=== PATIENT | female | born 1960 | race Caucasian/White ===

== ENCOUNTER → 2016-10-20 | Outpatient (CLI) | payer BC ==
[~2016-10-20] MED LIST: AMLO-110 PO; BIMA0.01 OP; BIMA0.01 OPB; CHOL100010 PO; CHOL2000 PO; CLON0.5T3 PO; CLOP1TAB15 PO; DOXY50CA26 PO; DOXY50CA5 PO; HYDR-5688 PO; KLN5X PO; METR0.7527 TOP; METR1GEL3 TOP; MULT-506 PO; NRV/5 PO; PLV75 PO; PRAV40TA2 PO
--- NOTE | 2016-10-20 14:33 | MAMMOGRAPHY REPORT ---
BILATERAL DIGITAL SCREENING MAMMOGRAM TOMOSYNTHESIS WITH CAD: 10/20/2016 TECHNIQUE: Breast tomosynthesis in addition to standard 2D mammography was performed. Current study was also evaluated with a Computer Aided Detection (CAD) system. COMPARISON: Comparison is made to exams dated: 10/18/2015, 10/09/2014 mammogram, 09/23/2012 mammogram, 09/26/2013 mammogram, 09/15/2011 mammogram, 09/12/2010 mammogram, and 03/11/2010 mammogram - [facility]. BREAST COMPOSITION: There are scattered areas of fibroglandular density in both breasts. FINDINGS: No suspicious masses, calcifications, or areas of architectural distortion are noted in e ither breast. There has been no significant interval change compared to prior exams. IMPRESSION: ACR BI-RADS CATEGORY 1: NEGATIVE There is no mammographic evidence of malignancy. A 1 year screening mammogram is recommended. The p atient will receive written notification of the results. Approximately 10% of breast cancers are not detected with mammography. A negative mammographic repor t should not delay biopsy if a clinically suggestive mass is present. Ana M Jennings M.D. /:10/20/2016 07:41:52 Fur Stretcher: Adelina ABDALLA(Billie)(M), [facility] letter sent: Normal 1/2 BI-RADS Code: ACR BI-RADS Category 1: Negative
== END | disposition home or self-care (01) ==
LOC: C.MAMM 06:58
PROVIDERS: ATTEND Obstetrics & Gynecology
DX: Z12.31 Encounter for screening mammogram for malignant neoplasm of breast (principal)

== ENCOUNTER 2016-11-19 18:11 | Emergency (ER) | payer SELFPAY ==
[~2016-11-19] VITALS: Ht 170.2 cm; Wt 84.6 kg
[~2016-11-19 18:11] MED LIST changes: -AMLO-110 PO; -BIMA0.01 OP; -CHOL2000 PO; -DOXY50CA26 PO; -HYDR-5688 PO; -KLN5X PO; -METR0.7527 TOP; -NRV/5 PO; -PLV75 PO
[2016-11-19 18:14] VITALS: TEMP 36.8; Ht 170.2 cm; Wt 84.6 kg
[2016-11-19] MEDS ORDERED: METR0.7527 TOP ×2 (18:50→18:53)
[2016-11-19] MEDS ORDERED: CHOL2000 PO (18:50)
[2016-11-19] MEDS ORDERED: NRV/5 PO (18:50)
[2016-11-19] MEDS ORDERED: PLV75 PO (18:53)
[2016-11-19] MEDS ORDERED: AMLO-110 PO (18:53)
[2016-11-19] MEDS ORDERED: DOXY50CA26 PO (18:53)
[2016-11-19] MEDS ORDERED: KLN5X PO (18:53)
[2016-11-19] MEDS ORDERED: BIMA0.01 OP (18:53)
--- NOTE | 2016-11-19 19:04 | DIAGNOSTIC IMAGING REPORT ---
LEFT KNEE 3 VIEWS CLINICAL HISTORY: Left knee pain. Fall. FINDINGS: AP, crosstable lateral, and sunrise views of the left knee are obtained. No prior studies are available for comparison at the time of dictation. The skeletal structures are osteopenic. There is irregularity identified along the medial patellar facet, only seen on the sunrise view. Nondistracted fracture is not excluded. No additional findings are concerning for acute fracture. There is mild degenerative narrowing in the medial and patellofemoral compartments. There are tiny marginal osteophytes, degenerative beaking of the tibial spine, and small patellar enthesophytes. A joint effusion is identified. Soft tissue edema is noted around the knee. IMPRESSION: 1. Soft tissue edema and large joint effusion. 2. There is cortical irregularity identified along the medial patellar facet, only seen on the sunrise view. Nondistracted fracture is not excluded. 3. No additional findings are concerning for acute fracture. 4. Osteopenia and mild degenerative change as above. Electronically signed by: Mushtaq Lacey M.D. 11/19/2016 7:01 PM Dictated Date/Time: 11/19/2016 6:58 PM
[2016-11-19] MEDS ORDERED: NORCO 5/325MG HOME PACK PO ONE (19:15)
[2016-11-19] MEDS ORDERED: HYDR-5688 PO (19:20)
--- NOTE | 2016-11-19 19:21 | EMERGENCY ROOM VISIT NOTE ---
ED Visit Note First contact with patient: 18:55 CHIEF COMPLAINT: Left knee injury earlier today HISTORY OF PRESENT ILLNESS: Patient is a 56-year-old white female who presents to the emergency department for evaluation of left knee pain after a fall that occurred about 8 hours ago. She reportedly tripped in the parking lot of [employer]. She landed on her flexed bilateral knees, apparently the left worse than the right. She sustained some superficial abrasions and was helped up by a bystander. She continued to try to walk into the store, she noticed pain and tightness in her left knee. She notes that the left knee has progressively become more painful and swollen as the day has gone on. She has tried taking Tylenol and applying ice to the area. She denies any prior history of problems with her knees. REVIEW OF SYSTEMS: No weakness or numbness of the leg, no previous serious injuries or surgery to this knee. PMH: Review of systems as per HPI. All other systems reviewed were negative. At least 6 systems reviewed. SOCIAL HISTORY: Patient lives at home. PHYSICAL EXAM: Vital Signs: Reviewed Nurse's notes. MENTAL STATUS: Pleasant 48- year-old white female who is awake and alert and laying on the gurney in no acute distress. MUSCULOSKELETAL: Patient has superficial abrasions noted over the anterior knees bilaterally, left worse than right. She has a moderate joint effusion palpable, with trace anterior soft tissue swelling. The anterior aspect of the knee is tender to palpation. No obvious fracture crepitus or deformity. She can extend fully, flexes the greater than 90. No gross ligamentous instability is appreciated. The left lower extremity is neurovascularly intact. Chronic venous stasis changes with dermatitis was noted in the anterior lower left leg. EMERGENCY DEPARTMENT COURSE: X-ray of the left knee was performed. Moderate joint effusion and soft tissue swelling was noted. Question a lucency on the lateral aspect of the patella could indicate a non-distracted fracture. The patient was wrapped with an Gilberto wrap and placed in a knee immobilizer. She does have crutches that she continues at home. Patient history of established with [facility]. She was encouraged to follow-up with [facility] for further care and management of her knee injury. Differential diagnosis includes contusion, patellar fracture joint fusion, hemarthrosis, meniscal or ligamentous injury, among others. LEFT KNEE 3 VIEWS CLINICAL HISTORY: Left knee pain. Fall. FINDINGS: AP, crosstable lateral, and sunrise views of the left knee are obtained. No prior studies are available for comparison at the time of dictation. The skeletal structures are osteopenic. There is irregularity identified along the medial patellar facet, only seen on the sunrise view. Nondistracted fracture is not excluded. No additional findings are concerning for acute fracture. There is mild degenerative narrowing in the medial and patellofemoral compartments. There are tiny marginal osteophytes, degenerative beaking of the tibial spine, and small patellar enthesophytes. A joint effusion is identified. Soft tissue edema is noted around the knee. IMPRESSION: 1. Soft tissue edema and large joint effusion. 2. There is cortical irregularity identified along the medial patellar facet, only seen on the sunrise view. Nondistracted fracture is not excluded. 3. No additional findings are concerning for acute fracture. 4. Osteopenia and mild degenerative change as above. Problem List Medical Problems: (1) Abdominal pain Status: Resolved (2) Acute appendicitis Status: Resolved (3) Appendicitis Status: Resolved (4) CVA (cerebral vascular accident) Status: Resolved (5) Emphysema Status: Chronic (6) Headache Status: Resolved (7) Heart disease Status: Chronic (8) Hypertension Status: Chronic (9) Stroke Status: Resolved (10) Stroke Status: Resolved Surgical Problems: (1) History of tubal ligation Status: Resolved (2) S/P appendectomy Status: Resolved Current/Historical Medications Scheduled Amlodipine (Norvasc), 5 MG PO DAILY Bimatoprost (Lumigan), 1 DROPS OP HS Clonazepam (Clonazepam), 0.5 MG PO HS Clopidogrel Bisulfate (Clopidogrel), 75 MG PO DAILY Scheduled PRN Doxycycline (Monohydrate) (Doxycycline), 50 MG PO DAILY PRN for rosecea Hydrocodone/Acetaminophen 5MG/325MG (Dixon 5MG/325MG), 1-2 TABLETS PO Q4 PRN for Pain Metronidazole (Topical) (Metrogel), 1 APPLN TOP UD PRN for rosecea Allergies Coded Allergies: Aminoglycosides (Verified Allergy, Unknown, ?, 11/19/16) Bacitracin (Verified Allergy, Unknown, ?, 11/19/16) Cephalexin (Verified Allergy, Unknown, RASH, 11/19/16) Cephalosporins (Verified Allergy, Unknown, 11/19/16) Diphenhydramine (Verified Allergy, Unknown, 11/19/16) Neomycin (Verified Allergy, Unknown, ?, 11/19/16) Polymyxin B (Verified Allergy, Unknown, ?, 11/19/16) Vital Signs Date Time Temp Pulse Resp B/P Pulse Ox O2 Delivery O2 Flow Rate FiO2 11/19/16 19:36 62 18 117/64 94 11/19/16 18:14 36.8 76 20 154/72 97 Room Air Medications Administered Medications (Trade) Dose Ordered Sig/Mirna Route Start Time Stop Time Status Last Admin Dose Admin Acetaminophen/ Hydrocodone Bitart (Dixon 5/325mg Home Pack) 1 homepack UD ONCE PO 11/19/16 19:15 11/19/16 19:16 DC 11/19/16 19:33 1 HOMEPACK Departure Information Impression Primary Impression: Left knee injury Additional Impressions: Multiple abrasions Fall Prescriptions Hydrocodone/Acetaminophen 5MG/325MG (Dixon 5MG/325MG) Tab 1-2 TABLETS PO Q4 Y for Pain, #20 TAB For Initial Treatment Prov: Savannah Abraham PA 11/19/16 Referrals Cy John M.D. (PCP) Mihir Hercules M.D. Patient Instructions My [facility] Additional Instructions Hydrocodone/Acetaminophen (Dixon) 5/325 mg: Take 1-2 pills every four hours for breakthrough pain. Avoid alcohol, operating machinery or dangerous equipment, working on ladders or roofs, DRIVING, or situations where being under the influence may be dangerous. It is recommended to use an bunp-aqn-[id number] stool softener such as Colace, 100mg twice daily while taking this medication to avoid constipation. Ibuprofen(Motrin, Advil) may be used for fever or pain. Use 600mg every six hours as needed. Take with food. Avoid using more than 2400mg in a 24 hour period. Do not use 2400mg per day for more than three consecutive days without physician direction. Prolonged inappropriate use can lead to stomach upset or ulcers. This medication can be taken if you need to drive, work, or perform activities which may be dangerous when taking narcotic pain medication. (AND/OR) Acetaminophen(Tylenol) may be used for fever or pain. Use 1000mg every six hours as needed. Avoid using more than 3000mg in a 24 hour period. This medication can be taken if you need to drive, work, or perform activities which may be dangerous when taking narcotic pain medication. Ice compresses for 20 minutes at a time four times daily for 2-3 days. Use the knee immobilizer and crutches as instructed. Rest and elevate your injury. Continue current medications. Return to the ER immediately for any numbness, tingling, severe pain, extreme swelling in the extremity or as needed. Call [facility] later this week to arrange follow up for your injury. Problem Qualifiers
[2016-11-19 19:36] VITALS: BP 117/64; PULSE 62; O2SAT 94
== END 2016-11-19 19:37 | disposition home or self-care (01) ==
LOC: C.EDB 18:12 → C.EDD 19:37
DX: S80.211A Abrasion, right knee, initial encounter (principal); S80.212A Abrasion, left knee, initial encounter; M25.462 Effusion, left knee; J43.9 Emphysema, unspecified; I10 Essential (primary) hypertension; Z79.899 Other long term (current) drug therapy; Z86.73 Personal history of transient ischemic attack (TIA), and cerebral infarction without residual deficits; W01.0XXA Fall on same level from slipping, tripping and stumbling without subsequent striking against object, initial encounter; Y92.512 Supermarket, store or market as the place of occurrence of the external cause

== ENCOUNTER → 2016-12-02 | Outpatient (CLI) | payer BC ==
[~2016-12-02] MED LIST changes: +AMLO-110 PO; +BIMA0.01 OP; -BIMA0.01 OPB; -CHOL100010 PO; -CLON0.5T3 PO; -CLOP1TAB15 PO; +DOXY50CA26 PO; -DOXY50CA5 PO; +HYDR-5688 PO; +KLN5X PO; +METR0.7527 TOP; -METR1GEL3 TOP; -MULT-506 PO; +PLV75 PO; -PRAV40TA2 PO
[2016-12-02 09:21] LABS: BASO % 0.9 %; BASO ABS # 0.04 K/uL (0-0.2); COMPLETE YES; EOS % 4.1 %; HEMATOCRIT 43.8 % (37-47); LYMPH % 41.6 %; LYMPH ABS # 1.81 K/uL (1.2-3.4); MEAN CELL VOLUME 89.4 fL (80-100); MEAN CORPUSCULAR HEMOGLOBIN 29.6 pg (25-34); MEAN CORPUSCULAR HGB CONC 33.1 g/dl (32-36); MEAN PLATELET VOLUME 10.1 fL (7.4-10.4); MONO % 9.9 %; NEUT % 43.5 %; PLATELET COUNT 276 K/uL (130-400); WHITE BLOOD COUNT 4.35 K/uL (4.8-10.8)
[2016-12-02 09:39] LABS: ESTIMATED AVERAGE GLUCOSE 105 mg/dl; HA1C FLAG Normal (Normal)
[2016-12-02 09:55] LABS: ALT/SGPT 30 U/L (12-78); BLOOD UREA NITROGEN 10 mg/dl (7-18); BUN/CREATININE RATIO 12.9 (10-20); CALCIUM 9.4 mg/dl (8.5-10.1); CARBON DIOXIDE 29 mmol/L (21-32); CHLORIDE 107 mmol/L (98-107); CREATININE 0.77 mg/dl (0.60-1.20); GLUCOSE 91 mg/dl (70-99); POTASSIUM 4.1 mmol/L (3.5-5.1); SODIUM 142 mmol/L (136-145)
[2016-12-02 10:01] LABS: ALB/GLOB RATIO 1.2 (0.9-2); ALKALINE PHOSPHATASE 114 U/L (45-117); AST/SGOT 20 U/L (15-37); CHOLESTEROL 169 mg/dl (0-200); CHOLESTEROL/HDL RATIO 3.3; HDL CHOLESTEROL 51 mg/dl; LDL CHOLESTEROL CALCULATED 99 mg/dl; PHOSPHORUS 2.8 mg/dl (2.5-4.9); THYROID STIMULATING HORMONE 0.965 uIu/ml (0.300-4.500); TRIGLYCERIDES 95 mg/dl (0-150); URIC ACID 3.7 mg/dl (2.6-7.2); VERY LOW DENSITY LIPOPROT CALC 19 mg/dl
--- NOTE | 2016-12-11 10:36 | CODING QUERY MEDICAL NECESSITY ---
CQSUPPORTING DIAGNOSIS NEEDED A supporting diagnosis is required for the test/procedure performed on this patient in order for us to be reimbursed by the patient's insurance. Please provide a supporting diagnosis for the following test/procedure listed below next to the test name along with your signature. *If there is no additional diagnosis for this patient that would support the following test/procedure please document that below next to the test/procedure. Test(s)/Procedure(s) that require a supporting diagnosis: DOS 12/02/16 VITAMIN D TEST C-REACTIVE PROTEIN HIGH SENSITIVITY TEST Provider Signature: Date: Thank you Lorelei Mora Health Information Management Once completed, please kindly fax back to [phone] For questions please call [phone]
== END | disposition home or self-care (01) ==
LOC: C.LAB 08:47
PROVIDERS: ATTEND Family Medicine
DX: R73.09 Other abnormal glucose (principal)

== ENCOUNTER → 2016-12-19 | Outpatient (CLI) | payer BC | END | disposition home or self-care (01) | LOC: C.RDSM 08:25 | PROVIDERS: ATTEND Family Medicine Sports Medicine | DX: S82.009A Unspecified fracture of unspecified patella, initial encounter for closed fracture (principal); X58.XXXA Exposure to other specified factors, initial encounter ==

== ENCOUNTER → 2017-04-02 | Outpatient (CLI) | payer BC | END | disposition home or self-care (01) | LOC: C.PAPS 08:12 | PROVIDERS: ATTEND Obstetrics & Gynecology | DX: Z01.419 Encounter for gynecological examination (general) (routine) without abnormal findings (principal) ==

== ENCOUNTER → 2017-06-20 | Outpatient (CLI) | payer OTHER, BC ==
[~2017-06-20] MED LIST changes: -HYDR-5688 PO
--- NOTE | 2017-06-20 10:42 | DIAGNOSTIC IMAGING REPORT ---
CHEST 2 VIEWS ROUTINE CLINICAL HISTORY: Atypical lower anterior chest pain COMPARISON STUDY: 11/15/2005 FINDINGS: The cardiac and mediastinal contours are normal. There is no evidence of focal pulmonary consolidation. There is no evidence of failure. No pleural effusions are visualized.[ An opacity at the level the left cardiophrenic angle is felt to be secondary to a fat pad. IMPRESSION: No active disease in the chest. Electronically signed by: Dioni Prather M.D. 06/20/2017 10:40 AM Dictated Date/Time: 06/20/2017 10:40 AM
== END | disposition home or self-care (01) ==
LOC: C.RAD1850 10:20
PROVIDERS: ATTEND Emergency Medicine
DX: R07.9 Chest pain, unspecified (principal)

== ENCOUNTER → 2017-10-23 | Day surgery (SDC) | payer BC, OTHER ==
[2017-09-17 07:36] VITALS: Ht 170.2 cm; Wt 86.4 kg
--- NOTE | 2017-10-12 20:25 | HISTORY & PHYSICAL EXAMINATION ---
DATE OF ADMISSION: 10/23/2017 REASON FOR VISIT: Cataract surgery. HISTORY OF PRESENT ILLNESS: This is a 57-year-old white female who was scheduled for cataract surgery on both the left and right eye during the upcoming 3 weeks. Please see note by Dr. Gregg regarding the evaluation of her vision. PAST MEDICAL HISTORY: Status post left hemispheric CVA in 2000, hypertension, hyperlipidemia, restless legs syndrome. PAST SURGICAL HISTORY: Appendectomy in 2013, laparoscopic tubal in 2003. MEDICATIONS: Plavix 75 mg daily, pravastatin 40 mg at bed, clonazepam 0.5 mg at bed, Amlodipine 5 mg daily, Lumigan eyedrops. FAMILY HISTORY: Father at the age of 74 from heart disease. Mother had 2 episodes of deep vein thrombosis. SOCIAL HISTORY: She is . She has 1 son. Currently, no alcohol or tobacco use. ALLERGIES: CEPHALEXIN, DIPHENHYDRAMINE. REVIEW OF SYSTEMS: Negative for headaches, dizziness, chest pain, dyspnea, palpitations, abdominal pain, dysuria or frequency and any weakness or difficulty with her balance. PHYSICAL EXAMINATION: VITAL SIGNS: Her weight is 195. Her height is 67 inches. Blood pressure 130/80, pulse of 81. GENERAL: She is an alert white female in no apparent distress. HEENT: Normal. NECK: Clear. CHEST: Clear to auscultation. CARDIAC: Regular rate without murmur. ABDOMEN: Benign. EXTREMITIES: There is no edema. NEUROLOGIC: Normal. ASSESSMENT: 1. Bilateral cataracts, she has an acceptable risk for the planned surgery. 2. Status post stroke, stable. 3. Hypertension, stable. 4. Hyperlipidemia, stable. PLAN: 1. Continue the above medications. 2. She will hold all her medications except for the amlodipine. 3. Proceed with the planned surgery.
[~2017-10-23] VITALS: Ht 170.2 cm; Wt 86.4 kg
[~2017-10-23] MED LIST changes: +500ML BSS 0.3ML EPI 1:1000PF IRRIG ONE; +ACETAMINOPHEN 325 MG TAB PO PRN; +AMVISC PLUS 0.8ML SYRINGE INT OCU ONE; +ATROPINE SULFATE 0.1 MG/ML 5ML SYR IV PRN; +BROM0.07; +BSS FLUSH ONE; +CALC600T37 PO; +CHOL2000 PO; +DIFL0.0519; -DOXY50CA26 PO; +EpHEDrine SULFATE INJ 50 MG/ML AMP IV PRN; +EpINEphrine INJ 1MG/ML AMP 1 MG/ML AMP ONE; +GATI0.5S OPL; +LACTATED RINGER'S 1000ML 500 ML IV SCH; +LIDOCAINE 3.5% OPH GEL PER APPLICATION CHARGE ONE; +LIDOCAINE HCL 1% MPF 2 ML VIAL ONE; -METR0.7527 TOP; +MIDAZOLAM HCL 1 MG/ML 2ML VIAL ONE; +MULT-506 PO; +OCUCOAT 1 ML SOLN IO ONE; +POVIDONE-IODINE OP SOLN 30 ML BTL ONE; +PROPARACAINE 0.5% OP SOLN PER DROP CHARGE OPL SCH; +PRVC40 PO; +TOBRAMYCIN/DEXAMETHASONE OPH OINT PER APPLN CHARGE ONE
[2017-10-23] MEDS: PHENYLEPHRINE HCL 2.5% OP SOLN PER DROP CHARGE OPL SCH ×2 (11:14→11:19)
[2017-10-23] MEDS: TROPICAMIDE 1% OP SOLN PER DROP CHARGE OPL SCH ×2 (11:15→11:20)
[2017-10-23] MEDS: CYCLOPENTOLATE HCL 1% OP SOLN PER DROP CHARGE OPL SCH ×2 (11:16→11:21)
[2017-10-23] MEDS: KETOROLAC 0.5% OP SOLN PER DROP CHARGE OPL SCH ×2 (11:17→11:21)
[2017-10-23] MEDS: GATIFLOXACIN OP SOLN PER DROP CHARGE OPL SCH ×2 (11:18→11:28)
--- NOTE | 2017-10-23 11:50 | History & Physical Bridge - SC ---
H&P Re-Evaluation Bridge Note: I have examined the patient, reviewed the History & Physical and in the interval since the performance of the History & Physical I have noted the following changes of clinical significance Diagnosis: Left Cataract Procedure: Left Cataract Removal with Lens Implant : No changes noted
--- NOTE | 2017-10-23 12:39 | [facility] Operative Report ---
Operative Report Date of Service Oct 23, 2017. Operative Report 1. PREOPERATIVE DIAGNOSIS: Cataract of the left eye. 2. POSTOPERATIVE DIAGNOSIS: Same. 3. PROCEDURE: Phacoemulsification with intraocular lens implantation of the left eye. SURGEON: Dr. Manpreet Gregg. ANESTHESIA: Topical Lidocaine gel, 1% Non- Preserved intracameral Lidocaine, and monitored intravenous sedation. INDICATIONS FOR THE PROCEDURE: The patient is a 57 - year-old female with a history of cataract of the left eye causing significant visual impairment. The details of the proposed procedure were explained to the patient who asked appropriate questions and following discussion of all risks, benefits and alternatives agreed to have the procedure done. 4. OPERATION AND FINDINGS: DESCRIPTION OF PROCEDURE: After informed consent was obtained, the patient was brought to the Operating Room at the [facility]. The patient was placed in a supine position and then the left eye was prepped and draped in the usual sterile fashion for intraocular surgery. A drop of topical Lidocaine gel was placed in the operative eye. A wire lid speculum was then placed in the fornices. A corneal paracentesis was then created temporally. The Non-Preserved Lidocaine was then instilled into the anterior chamber. The anterior chamber was then pressurized with viscoelastic. A 2.0 mm clear corneal incision was then created temporally. A cystotome was inserted into the anterior chamber and used to create a tear in the anterior lens capsule. This capsular tear was then used to create a small flap and the flap was dragged in a counterclockwise direction in order to create a continuous curvilinear capsulorrhexis. Hydrodissection was accomplished with balanced salt solution. Phacoemulsification of the lens nucleus was then performed in a standard [id number]-hir-eyfluka technique. The phaco time was 18 seconds with an average power of 10 %. The remaining cortical material was removed using irrigation aspiration. The capsular bag was then filled with viscoelastic. A Jose G [id number] +22.5 diopters lens was then loaded into the injector and injected into the capsular bag. The remaining viscoelastic was removed with the irrigation aspiration handpiece. The wound was hydrated and then checked and found to be watertight. The intraocular pressure was checked and found to be adequate. The wire lid speculum was removed and the patient's face was cleaned and dried. TobraDex ointment was placed in the inferior fornix. The patient was discharged to the Recovery Room having tolerated the procedure well. There were no complications. The patient will be seen tomorrow in the office for follow-up. I attest to the content of the Intraoperative Record and any orders documented therein. Any exceptions are noted below.
--- NOTE | 2017-10-23 12:40 | Discharge Instructions-SurgCtr ---
Discharge Instructions Date of Service Oct 23, 2017. Visit Reason for Visit: Left Cataract Discharge Discharge Diagnosis / Problem: cataract Discharge Goals Goal(s): Improve function Activity Recommendations Activity Limitations: per Instructions/Follow-up section Anesthesia . Post Anesthesia Instructions: If you have had General Anesthesia or IV Sedation: * Do not drive today. * Resume driving when surgeon permits. * Do not make important decisions or sign legal documents today. * Call surgeon for: 1. Temperature elevations greater than 101 degrees F. 2. Uncontrollable pain. 3. Excessive bleeding. 4. Persistent nausea and vomiting. 5. Medication intolerance (nausea, vomiting or rash). * For nausea and vomiting use only clear liquids such as: tea, soda, bouillon until nausea subsides, then gradually increase diet as tolerated. * If you have any concerns or questions, call your surgeon's office. If physician is unavailable and it is an emergency, call 911 or go to the nearest emergency room. . Diet Recommendations Home Diet: resume previous diet Procedures Procedures Performed: Left Cataract Phacoemulsification With Intraocular Lens Implant Pending Studies Studies pending at discharge: no Medical Emergencies . Who to Call and When: Medical Emergencies: If at any time you feel your situation is an emergency, please call 911 immediately. . Non-Emergent Contact Non-Emergency issues call your: Preschool Director . . "Provider Documentation" section prepared by Manpreet Gregg. .
[2017-10-23 12:43] VITALS: TEMP 36.5
[2017-10-23 13:16] VITALS: BP 115/72; PULSE 58; O2SAT 97
--- NOTE | 2017-10-23 13:18 | Anesthesia Progress Nt - [facility] ---
Anesthesia Post Op Note Date & Time Oct 23, 2017 at 13:18 Vital Signs Pain Intensity: 0 Vital Signs Past 12 Hours Date Time Temp Pulse Resp B/P (MAP) Pulse Ox O2 Delivery O2 Flow Rate FiO2 10/23/17 13:16 58 16 115/72 (86) 97 Room Air 10/23/17 12:43 36.5 68 16 130/84 (99) 96 Room Air 10/23/17 11:00 36.4 66 16 146/84 (104) 98 Room Air Notes Mental Status: alert / awake / arousable, participated in evaluation Pt Amnestic to Procedure: Yes Nausea / Vomiting: adequately controlled Pain: adequately controlled Airway Patency, RR, SpO2: stable & adequate BP & HR: stable & adequate Hydration State: stable & adequate Anesthetic Complications: no major complications apparent
== END | disposition home or self-care (01) ==
LOC: X.SURG 10:12
PROVIDERS: ATTEND Ophthalmology
DX: H26.9 Unspecified cataract (principal); I10 Essential (primary) hypertension; E78.5 Hyperlipidemia, unspecified; Z90.89 Acquired absence of other organs; Z98.51 Tubal ligation status; Z79.02 Long term (current) use of antithrombotics/antiplatelets; Z79.899 Other long term (current) drug therapy; Z86.73 Personal history of transient ischemic attack (TIA), and cerebral infarction without residual deficits; Z82.49 Family history of ischemic heart disease and other diseases of the circulatory system

== ENCOUNTER → 2017-10-24 | Outpatient (CLI) | payer OTHER ==
[~2017-10-24] MED LIST changes: -500ML BSS 0.3ML EPI 1:1000PF IRRIG ONE; -ACETAMINOPHEN 325 MG TAB PO PRN; -AMVISC PLUS 0.8ML SYRINGE INT OCU ONE; -ATROPINE SULFATE 0.1 MG/ML 5ML SYR IV PRN; -BSS FLUSH ONE; -EpHEDrine SULFATE INJ 50 MG/ML AMP IV PRN; -EpINEphrine INJ 1MG/ML AMP 1 MG/ML AMP ONE; -LACTATED RINGER'S 1000ML 500 ML IV SCH; -LIDOCAINE 3.5% OPH GEL PER APPLICATION CHARGE ONE; -LIDOCAINE HCL 1% MPF 2 ML VIAL ONE; -MIDAZOLAM HCL 1 MG/ML 2ML VIAL ONE; -OCUCOAT 1 ML SOLN IO ONE; -POVIDONE-IODINE OP SOLN 30 ML BTL ONE; -PROPARACAINE 0.5% OP SOLN PER DROP CHARGE OPL SCH; -TOBRAMYCIN/DEXAMETHASONE OPH OINT PER APPLN CHARGE ONE
--- NOTE | 2017-10-24 14:14 | MAMMOGRAPHY REPORT ---
BILATERAL DIGITAL SCREENING MAMMOGRAM TOMOSYNTHESIS WITH CAD: 10/24/2017 CLINICAL HISTORY: Routine screening. Patient has no complaints. TECHNIQUE: Breast tomosynthesis in addition to standard 2D mammography was performed. Current study was also evaluated with a Computer Aided Detection (CAD) system. COMPARISON: Comparison is made to exams dated: 10/20/2016 mammogram, 10/18/2015 mammogram, 10/09/2014 ma mmogram, 09/23/2012 mammogram, 09/15/2011 mammogram, and 09/12/2010 mammogram - [facility]. BREAST COMPOSITION: There are scattered areas of fibroglandular density in both breasts. FINDINGS: No suspicious masses, calcifications, or areas of architectural distortion are noted in ei ther breast. There has been no significant interval change compared to prior exams. Small nodular as ymmetry in the left superior breast middle depth on the MLO view is stable compared to prior exams in cluding 2015 exam. IMPRESSION: ACR BI-RADS CATEGORY 2: BENIGN There is no mammographic evidence of malignancy. A 1 year screening mammogram is recommended. The pa tient will receive written notification of the results. Approximately 10% of breast cancers are not detected with mammography. A negative mammographic report should not delay biopsy if a clinically suggestive mass is present. Ana M Jennings M.D. /:10/24/2017 07:38:10 Deck Cadet: Rubi ABDALLA(R)(M), [facility] letter sent: Normal 1/2 BI-RADS Code: ACR BI-RADS Category 2: Benign
== END | disposition home or self-care (01) ==
LOC: C.MAMM 07:13
PROVIDERS: ATTEND Obstetrics & Gynecology
DX: Z12.31 Encounter for screening mammogram for malignant neoplasm of breast (principal)

== ENCOUNTER → 2017-11-06 | Day surgery (SDC) | payer OTHER ==
[2017-11-02 08:06] VITALS: Ht 170.2 cm; Wt 86.4 kg
[~2017-11-06] VITALS: Ht 170.2 cm; Wt 86.4 kg
[~2017-11-06] MED LIST changes: +500ML BSS 0.3ML EPI 1:1000PF IRRIG ONE; +ACETAMINOPHEN 325 MG TAB PO PRN; +AMVISC PLAIN 0.8ML SYRINGE INT OCU ONE; +AMVISC PLUS 0.8ML SYRINGE INT OCU ONE; +ATROPINE SULFATE 0.1 MG/ML 5ML SYR IV PRN; -BROM0.07; +BSS FLUSH ONE; -DIFL0.0519; +EpHEDrine SULFATE INJ 50 MG/ML AMP IV PRN; +EpINEphrine INJ 1MG/ML AMP 1 MG/ML AMP ONE; +FENTANYL CITRATE INJ 50 MCG/1 ML 2 ML VIAL IV PRN; +FLUMAZENIL 0.1 MG/1 ML 10 ML VIAL IV PRN; -GATI0.5S OPL; +HYDROmorphone INJ 0.5 MG/0.5 ML SYR IV PRN; +LABETALOL HCL IV 5 MG/ML 20ML IV PRN; +LACTATED RINGER'S 1000ML 500 ML IV SCH; +LIDOCAINE 3.5% OPH GEL PER APPLICATION CHARGE ONE; +LIDOCAINE HCL 1% MPF 2 ML VIAL ONE; +MEPERIDINE HCL 25 MG/ML CARP IV PRN; +MIDAZOLAM HCL 1 MG/ML 2ML VIAL ONE; +NALOXONE HCL 0.4 MG/1 ML VIAL/CARP IV PRN; +OCUCOAT 1 ML SOLN IO ONE; +ONDANSETRON INJ 2 MG/ML 2 ML VIAL IV PRN; +PHENYLEPHRINE 100MCG/ML 5ML SYR IV PRN; +POVIDONE-IODINE OP SOLN 30 ML BTL ONE; +PROPARACAINE 0.5% OP SOLN PER DROP CHARGE OPR SCH; +TOBRAMYCIN/DEXAMETHASONE OPH OINT PER APPLN CHARGE ONE
[2017-11-06] MEDS: PHENYLEPHRINE HCL 2.5% OP SOLN PER DROP CHARGE OPR SCH ×2 (07:10→07:15)
[2017-11-06] MEDS: TROPICAMIDE 1% OP SOLN PER DROP CHARGE OPR SCH ×2 (07:11→07:15)
[2017-11-06] MEDS: CYCLOPENTOLATE HCL 1% OP SOLN PER DROP CHARGE OPR SCH ×2 (07:11→07:16)
[2017-11-06] MEDS: KETOROLAC 0.5% OP SOLN PER DROP CHARGE OPR SCH ×2 (07:12→07:16)
[2017-11-06] MEDS: GATIFLOXACIN OP SOLN PER DROP CHARGE OPR SCH ×2 (07:12→07:22)
--- NOTE | 2017-11-06 07:56 | History & Physical Bridge - SC ---
H&P Re-Evaluation Bridge Note: I have examined the patient, reviewed the History & Physical and in the interval since the performance of the History & Physical I have noted the following changes of clinical significance: Diagnosis: Right Cataract Procedure: Right Cataract Removal with Lens Implant No changes noted
--- NOTE | 2017-11-06 08:39 | [facility] Operative Report ---
Operative Report Date of Service Nov 06, 2017. Operative Report 1. PREOPERATIVE DIAGNOSIS: Cataract of the right eye. 2. POSTOPERATIVE DIAGNOSIS: Same. 3. PROCEDURE: Phacoemulsification with intraocular lens implantation of the right eye. SURGEON: Dr. Manpreet Gregg. ANESTHESIA: Topical Lidocaine gel, 1% Non- Preserved intracameral Lidocaine, and monitored intravenous sedation. INDICATIONS FOR THE PROCEDURE: The patient is a 57 - year-old female with a history of cataract of the right eye causing significant visual impairment. The details of the proposed procedure were explained to the patient who asked appropriate questions and following discussion of all risks, benefits and alternatives agreed to have the procedure done. Patient had corneal astigmatism and therefore elected to have a toric lens placed. 4. OPERATION AND FINDINGS: DESCRIPTION OF PROCEDURE: After informed consent was obtained, the patient was placed in an upright position and the cornea was marked at 120 degrees using the Ingresse corneal marking tool. The patient was brought to the Operating Room at the [facility]. The patient was placed in a supine position and then the right eye was prepped and draped in the usual sterile fashion for intraocular surgery. A drop of topical Lidocaine gel was placed in the operative eye. A wire lid speculum was then placed in the fornices. A corneal paracentesis was then created temporally. The Non-Preserved Lidocaine was then instilled into the anterior chamber. The anterior chamber was then pressurized with viscoelastic. A 2.0 mm clear corneal incision was then created temporally. A cystotome was inserted into the anterior chamber and used to create a tear in the anterior lens capsule. This capsular tear was then used to create a small flap and the flap was dragged in a counterclockwise direction in order to create a continuous curvilinear capsulorrhexis. Hydrodissection was accomplished with balanced salt solution. Phacoemulsification of the lens nucleus was then performed in a standard divide- and-conquer technique. The phaco time was 19 seconds with an average power of 9 %. The remaining cortical material was removed using irrigation aspiration. The capsular bag was then filled with viscoelastic. A Jose G [id number] +23.0 diopters lens was then loaded into the injector and injected into the capsular bag. The remaining viscoelastic was removed with the irrigation aspiration handpiece. The lens was aligned with the previously made corneal ro. The wound was hydrated and then checked and found to be watertight. The intraocular pressure was checked and found to be adequate. The wire lid speculum was removed and the patient's face was cleaned and dried. TobraDex ointment was placed in the inferior fornix. The patient was discharged to the Recovery Room having tolerated the procedure well. There were no complications. The patient will be seen tomorrow in the office for follow-up. I attest to the content of the Intraoperative Record and any orders documented therein. Any exceptions are noted below.
--- NOTE | 2017-11-06 08:40 | Discharge Instructions-SurgCtr ---
Discharge Instructions Date of Service Nov 06, 2017. Visit Reason for Visit: Right Cataract Discharge Discharge Diagnosis / Problem: cataract Discharge Goals Goal(s): Improve function Activity Recommendations Activity Limitations: per Instructions/Follow-up section Anesthesia . Post Anesthesia Instructions: If you have had General Anesthesia or IV Sedation: * Do not drive today. * Resume driving when surgeon permits. * Do not make important decisions or sign legal documents today. * Call surgeon for: 1. Temperature elevations greater than 101 degrees F. 2. Uncontrollable pain. 3. Excessive bleeding. 4. Persistent nausea and vomiting. 5. Medication intolerance (nausea, vomiting or rash). * For nausea and vomiting use only clear liquids such as: tea, soda, bouillon until nausea subsides, then gradually increase diet as tolerated. * If you have any concerns or questions, call your surgeon's office. If physician is unavailable and it is an emergency, call 911 or go to the nearest emergency room. . Diet Recommendations Home Diet: resume previous diet Procedures Procedures Performed: Right Cataract Phacoemulsification With Intraocular Lens Implant Pending Studies Studies pending at discharge: no Medical Emergencies . Who to Call and When: Medical Emergencies: If at any time you feel your situation is an emergency, please call 911 immediately. . Non-Emergent Contact Non-Emergency issues call your: Bandsaw Operator . . "Provider Documentation" section prepared by Manpreet Gregg. .
[2017-11-06 08:41] VITALS: TEMP 36.4
--- NOTE | 2017-11-06 09:02 | Anesthesia Progress Nt - [facility] ---
Anesthesia Post Op Note Date & Time Nov 06, 2017 at 09:02 Vital Signs Pain Intensity: 0 Vital Signs Past 12 Hours Date Time Temp Pulse Resp B/P (MAP) Pulse Ox O2 Delivery O2 Flow Rate FiO2 11/06/17 08:41 36.4 70 16 124/85 (98) 97 Room Air 11/06/17 07:00 37 69 18 150/81 (104) 97 Room Air Notes Mental Status: alert / awake / arousable, participated in evaluation Pt Amnestic to Procedure: Yes Nausea / Vomiting: adequately controlled Pain: adequately controlled Airway Patency, RR, SpO2: stable & adequate BP & HR: stable & adequate Hydration State: stable & adequate Anesthetic Complications: no major complications apparent
[2017-11-06 09:04] VITALS: BP 131/83; PULSE 54; O2SAT 98
== END | disposition home or self-care (01) ==
LOC: X.SURG 06:47
PROVIDERS: ATTEND Ophthalmology
DX: H26.9 Unspecified cataract (principal); I10 Essential (primary) hypertension; E78.5 Hyperlipidemia, unspecified; G25.81 Restless legs syndrome; Z88.1 Allergy status to other antibiotic agents; Z88.6 Allergy status to analgesic agent; Z79.02 Long term (current) use of antithrombotics/antiplatelets; Z90.89 Acquired absence of other organs; Z98.51 Tubal ligation status; Z86.73 Personal history of transient ischemic attack (TIA), and cerebral infarction without residual deficits; Z82.49 Family history of ischemic heart disease and other diseases of the circulatory system; Z83.2 Family history of diseases of the blood and blood-forming organs and certain disorders involving the immune mechanism

== ENCOUNTER 2017-11-21 20:02 | Emergency (ER) | payer OTHER ==
[~2017-11-21] VITALS: Ht 170.2 cm; Wt 92.3 kg
[~2017-11-21 20:02] MED LIST changes: -500ML BSS 0.3ML EPI 1:1000PF IRRIG ONE; -ACETAMINOPHEN 325 MG TAB PO PRN; -AMVISC PLAIN 0.8ML SYRINGE INT OCU ONE; -AMVISC PLUS 0.8ML SYRINGE INT OCU ONE; -ATROPINE SULFATE 0.1 MG/ML 5ML SYR IV PRN; -BSS FLUSH ONE; -EpHEDrine SULFATE INJ 50 MG/ML AMP IV PRN; -EpINEphrine INJ 1MG/ML AMP 1 MG/ML AMP ONE; -FENTANYL CITRATE INJ 50 MCG/1 ML 2 ML VIAL IV PRN; -FLUMAZENIL 0.1 MG/1 ML 10 ML VIAL IV PRN; -HYDROmorphone INJ 0.5 MG/0.5 ML SYR IV PRN; -LABETALOL HCL IV 5 MG/ML 20ML IV PRN; -LACTATED RINGER'S 1000ML 500 ML IV SCH; -LIDOCAINE 3.5% OPH GEL PER APPLICATION CHARGE ONE; -LIDOCAINE HCL 1% MPF 2 ML VIAL ONE; -MEPERIDINE HCL 25 MG/ML CARP IV PRN; -MIDAZOLAM HCL 1 MG/ML 2ML VIAL ONE; -NALOXONE HCL 0.4 MG/1 ML VIAL/CARP IV PRN; -OCUCOAT 1 ML SOLN IO ONE; -ONDANSETRON INJ 2 MG/ML 2 ML VIAL IV PRN; -PHENYLEPHRINE 100MCG/ML 5ML SYR IV PRN; -POVIDONE-IODINE OP SOLN 30 ML BTL ONE; -PROPARACAINE 0.5% OP SOLN PER DROP CHARGE OPR SCH; -TOBRAMYCIN/DEXAMETHASONE OPH OINT PER APPLN CHARGE ONE
[2017-11-21 20:05] VITALS: TEMP 36.7; Ht 170.2 cm; Wt 92.3 kg
[2017-11-21] MEDS ORDERED: SODIUM CHLORIDE 0.9% 1000ML 1,000 ML IV STA (20:58)
[2017-11-21] MEDS ORDERED: CIPROFLOXACIN 500 MG TAB PO STA (20:58)
[2017-11-21] MEDS ORDERED: ONDANSETRON INJ 2 MG/ML 2 ML VIAL IV STA (20:58)
[2017-11-21] MEDS ORDERED: KETOROLAC TROMETHAMINE 30 MG/ML VIAL IV STA (20:58)
--- NOTE | 2017-11-21 21:01 | EMERGENCY ROOM VISIT NOTE ---
History Report prepared by Jalen: Lilliam Lawson Under the Supervision of: Dr. Castro Bro M.D. First contact with patient: 20:53 Chief Complaint: NAUSEA Stated Complaint: NAUSEA Nursing Triage Summary: [facility] and given abx for tx of UTI , 30 mins after taking 1st dose of med vomitted X 5 times and now has diarrhea pt given macrobid and pyridium History of Present Illness The patient is a 57 year old female who presents to the Emergency Room with complaints of vomiting that began prior to arrival. She reports that she went to [facility] earlier today. There she was diagnosed with a urinary tract infection, noting that she was prescribed Macrobid and Pyridium. After about 30 minutes of taking her medication, the patient began vomiting. She has been nauseous since then. The patient reports that she takes Plavix, noting a history of a stroke, appendectomy, and having her tubes tied. Source of History: patient Onset: today Position: other (gastrointestinal) Quality: other (vomiting) Timing: other (persistent) Associated Symptoms: + nausea Review of Systems See HPI for pertinent positives & negatives. A total of 10 systems reviewed and were otherwise negative. Past Medical & Surgical Medical Problems: (1) Abdominal pain (2) Acute appendicitis (3) Appendicitis (4) CVA (cerebral vascular accident) (5) Emphysema (6) Headache (7) Heart disease (8) Hypertension (9) Stroke (10) Stroke Surgical Problems: (1) History of tubal ligation (2) S/P appendectomy Family History Cancer Diabetes mellitus Gallbladder disease Heart disease Hypertension Kidney disease Kidney stones Seizures Social History Smoking Status: Never Smoker Alcohol Use: occasionally Marital Status: Housing Status: lives with significant other Occupation Status: employed Current/Historical Medications Scheduled Amlodipine (Norvasc), 5 MG PO QAM Bimatoprost (Lumigan), 1 DROPS OP HS Calcium (Calcium), 1 TAB PO DAILY Cholecalciferol (Vitamin D3), 1 CAP PO DAILY Ciprofloxacin Hcl (Cipro), 1 TAB PO BID Clonazepam (Clonazepam), 0.5 MG PO HS Clopidogrel Bisulfate (Clopidogrel), 75 MG PO QAM Multivitamin (Multivitamin), 1 TAB PO DAILY Ondasetron Odt (Zofran Odt), 4 MG SL Q6H Pravastatin Sod (Pravastatin Sodium), 1 TAB PO HS Allergies Coded Allergies: Diphenhydramine (Verified Allergy, Intermediate, SEIZURES, 11/06/17) Cephalexin (Verified Allergy, Mild, RASH, 11/06/17) Bacitracin (Verified Allergy, Unknown, BLISTERS, 11/06/17) Neomycin (Verified Allergy, Unknown, BLISTERS, 11/06/17) Polymyxin B (Verified Allergy, Unknown, BLISTERS, 11/06/17) Physical Exam Vital Signs Date Time Temp Pulse Resp B/P (MAP) Pulse Ox O2 Delivery O2 Flow Rate FiO2 11/21/17 22:29 95 23 149/84 93 11/21/17 22:00 92 Room Air 11/21/17 21:46 87 21 140/86 95 Room Air 11/21/17 21:43 83 11/21/17 21:25 88 20 175/89 94 Room Air 11/21/17 20:05 36.7 107 20 140/85 95 Room Air Physical Exam GENERAL: Awake, alert, well-appearing, in no acute distress HENT: Normocephalic, atraumatic. Oropharynx unremarkable. EYES: Normal conjunctiva. Sclera non-icteric. NECK: Supple. No nuchal rigidity. FROM. No JVD. RESPIRATORY: Clear to auscultation. CARDIAC: Regular rate, normal rhythm. Extremities warm and well perfused. Pulses equal. ABDOMEN: Soft, non-distended. No tenderness to palpation. No rebound or guarding. No masses. RECTAL: Deferred. MUSCULOSKELETAL: Chest examination reveals no tenderness. The back is symmetrical on inspection without obvious abnormality. There is no CVA tenderness to palpation. No joint edema. LOWER EXTREMITIES: Calves are equal size bilaterally and non-tender. No edema. No discoloration. NEURO: Normal sensorium. No sensory or motor deficits noted. SKIN: No rash or jaundice noted. Medical Decision & Procedures Laboratory Results 11/21/17 20:15 Red Blood Count 5.27, Mean Corpuscular Volume 87.7, Mean Corpuscular Hemoglobin 30.0, Mean Corpuscular Hemoglobin Concent 34.2, Mean Platelet Volume 9.5, Neutrophils (%) (Auto) 89.3, Lymphocytes (%) (Auto) 3.9, Monocytes (%) (Auto) 5.4, Eosinophils (%) (Auto) 1.0, Basophils (%) (Auto) 0.1, Neutrophils # (Auto) 12.53, Lymphocytes # (Auto) 0.55, Monocytes # (Auto) 0.76, Eosinophils # (Auto) 0.14, Basophils # (Auto) 0.02 11/21/17 20:15 Test 11/21/17 20:15 11/21/17 21:00 White Blood Count 14.04 K/uL (4.8-10.8) Red Blood Count 5.27 M/uL (4.2-5.4) Hemoglobin 15.8 g/dL (12.0-16.0) Hematocrit 46.2 % (37-47) Mean Corpuscular Volume 87.7 fL (80-100) Mean Corpuscular Hemoglobin 30.0 pg (25-34) Mean Corpuscular Hemoglobin Concent 34.2 g/dl (32-36) Platelet Count 285 K/uL (130-400) Mean Platelet Volume 9.5 fL (7.4-10.4) Neutrophils (%) (Auto) 89.3 % Lymphocytes (%) (Auto) 3.9 % Monocytes (%) (Auto) 5.4 % Eosinophils (%) (Auto) 1.0 % Basophils (%) (Auto) 0.1 % Neutrophils # (Auto) 12.53 K/uL (1.4-6.5) Lymphocytes # (Auto) 0.55 K/uL (1.2-3.4) Monocytes # (Auto) 0.76 K/uL (0.11-0.59) Eosinophils # (Auto) 0.14 K/uL (0-0.5) Basophils # (Auto) 0.02 K/uL (0-0.2) RDW Standard Deviation 43.6 fL (36.4-46.3) RDW Coefficient of Variation 13.6 % (11.5-14.5) Immature Granulocyte % (Auto) 0.3 % Immature Granulocyte # (Auto) 0.04 K/uL (0.00-0.02) Anion Gap 6.0 mmol/L (3-11) Est Creatinine Clear Calc Drug Dose 64.2 ml/min Estimated GFR () 63.6 Estimated GFR (Non- 54.9 BUN/Creatinine Ratio 18.5 (10-20) Calcium Level 9.4 mg/dl (8.5-10.1) Total Bilirubin 0.8 mg/dl (0.2-1) Direct Bilirubin 0.2 mg/dl (0-0.2) Aspartate Amino Transf (AST/SGOT) 29 U/L (15-37) Alanine Aminotransferase (ALT/SGPT) 37 U/L (12-78) Alkaline Phosphatase 93 U/L (45-117) Total Protein 8.5 gm/dl (6.4-8.2) Albumin 4.7 gm/dl (3.4-5.0) Lipase 176 U/L (73-393) Urine Color ORANGE Urine Appearance SLIGHTLY CLOUDY (CLEAR) Urine pH (4.5-7.5) Urine Specific [place] 1.028 (1.000-1.030) Urine Protein (NEG) Urine Glucose (UA) (NEG) Urine Ketones (NEG) Urine Occult Blood (NEG) Urine Nitrite (NEG) Urine Bilirubin (NEG) Urine Urobilinogen (NEG) Urine Leukocyte Esterase (NEG) Urine RBC >30 /hpf (0-4) Urine WBC >30 /hpf (0-5) Urine Epithelial Cells >30 /lpf (0-5) Urine Bacteria 2+ (NEG) Urine Yeast PRESENT (NONE PRSENT) Labs reviewed by ED physician. Medications Administered Medications (Trade) Dose Ordered Sig/Mirna Route Start Time Stop Time Status Last Admin Dose Admin Sodium Chloride 1,000 ml @ 999 mls/hr Q1H1M STAT IV 11/21/17 20:58 11/21/17 21:58 DC 11/21/17 21:15 999 MLS/HR Ketorolac Tromethamine (Toradol Inj) 30 mg NOW STAT IV 11/21/17 20:58 11/21/17 21:01 DC 11/21/17 21:20 30 MG Ondansetron HCl (Zofran Inj) 4 mg NOW STAT IV 11/21/17 20:58 11/21/17 21:01 DC 11/21/17 21:20 4 MG Ciprofloxacin (Cipro Tab) 500 mg NOW STAT PO 11/21/17 20:58 11/21/17 21:02 DC 11/21/17 21:42 500 MG Albuterol Sulfate (Ventolin 0.083% 2.5MG/3ML Neb) 2.5 mg NOW STAT INH 11/21/17 21:35 11/21/17 21:37 DC 11/21/17 21:42 2.5 MG Albuterol Sulfate (Ventolin 0.083% 2.5MG/3ML Neb) 2.5 mg NOW STAT INH 11/21/17 22:02 11/21/17 22:03 DC 11/21/17 22:06 2.5 MG Albuterol (Ventolin Hfa Inhaler) 2 puffs NOW STAT INH 11/21/17 22:09 11/21/17 22:11 DC 11/21/17 22:20 2 PUFFS Ondansetron HCl (ZOFRAN ODT 4MG Home Pack) 1 homepack UD STAT PO 11/21/17 22:09 11/21/17 22:11 DC 11/21/17 22:20 1 HOMEPACK ED Course 2054: Past medical records reviewed. The patient was evaluated in room C12. A complete history and physical examination was performed. 2057: Ordered Ciprofloxacin 500mg PO, Zofran Inj 4mg IV, Toradol Inj 30mg, and Sodium Chloride 1000ml @ 999mls/hr IV. 2134: Ordered Albuterol Sulfate 2.5mg. 2201: Ordered Albuterol Sulfate 2.5mg. 2208: Ordered Ondansetron HCl 1 homepack PO and Albuterol 2 puffs INH. 2222: Upon reexamination the patient is feeling significantly better. I discussed results and treatment plan with the patient. She verbalizes agreement and understanding. The patient is ready for discharge. Medical Decision Differential diagnosis: Etiologies such as gastroenteritis, food borne illness, infections, appendicitis , diverticulitis, inflammatory bowel disease, obstruction, GI bleed, biliary pathology, as well as others were entertained. This is a 57-year-old female who presents emergency department after vomiting and diarrhea after taking Macrobid and Pyridium. An IV was established, the patient is given normal saline bolus. I will note that the patient never had any abdominal pain chest pain or shortness of breath. She is nontender on physical examination. Serial abdominal examinations were performed on the patient in the emergency department and at no time the patient exhibits surgical abdomen. I suspect that the patient's elevation in her white blood cell count is due to vomiting. After receiving Toradol and IV Zofran, the patient was able to tolerate p.o. Cipro. Urine culture was obtained. I recommended that the patient follow-up with her primary care physician. The patient was given breathing treatments in the emergency department though she denied being short of breath. I will note that she also has a history of sleep apnea. She was given an inhaler for use at home. Medication Reconcilliation Current Medication List: was personally reviewed by me Blood Pressure Screening Patient's blood pressure: Elevated blood pressure Blood pressure disposition: Elevated BP felt to be situational Impression Primary Impression: UTI (urinary tract infection) Additional Impression: Gastritis Scribe Attestation The scribe's documentation has been prepared under my direction and personally reviewed by me in its entirety. I confirm that the note above accurately reflects all work, treatment, procedures, and medical decision making performed by me. Departure Information Dispostion Home / Self-Care Prescriptions Ondasetron Odt (ZOFRAN ODT) 4 Mg Tab 4 MG SL Q6H for Nausea, #6 TAB Prov: Castro Bro MD 11/21/17 Ciprofloxacin Hcl (CIPRO) 500 Mg Tab 1 TAB PO BID for 10 Days, #20 TAB Prov: Castro Bro MD 11/21/17 Referrals Cy John M.D. (PCP) Forms HOME CARE DOCUMENTATION FORM, IMPORTANT VISIT INFORMATION Patient Instructions My [facility] Health Problem Qualifiers Primary Impression: UTI (urinary tract infection) Urinary tract infection type: acute cystitis Hematuria presence: without hematuria Qualified Codes: N30.00 - Acute cystitis without hematuria Additional Impression: Gastritis Gastritis type: unspecified gastritis Chronicity: acute Gastritis bleeding : presence of bleeding unspecified Qualified Codes: K29.00 - Acute gastritis without bleeding
[2017-11-21 21:29] LABS: BASO % 0.1 %; BASO ABS # 0.02 K/uL (0-0.2); EOS ABS # 0.14 K/uL (0-0.5); HEMATOCRIT 46.2 % (37-47); HEMOGLOBIN 15.8 g/dL (12.0-16.0); IG# 0.04 K/uL (0.00-0.02); LYMPH % 3.9 %; LYMPH ABS # 0.55 K/uL (1.2-3.4); MEAN CELL VOLUME 87.7 fL (80-100); MEAN CORPUSCULAR HGB CONC 34.2 g/dl (32-36); MEAN PLATELET VOLUME 9.5 fL (7.4-10.4); MONO % 5.4 %; MONO ABS # 0.76 K/uL (0.11-0.59); NEUT % 89.3 %; NEUT ABS # 12.53 K/uL (1.4-6.5); PLATELET COUNT 285 K/uL (130-400); RED CELL DISTRIBUTION WIDTH CV 13.6 % (11.5-14.5); RED CELL DISTRIBUTION WIDTH SD 43.6 fL (36.4-46.3); WHITE BLOOD COUNT 14.04 K/uL (4.8-10.8)
[2017-11-21] MEDS ORDERED: ALBUTEROL 0.083% NEBU SOLN 3 ML VIAL INH STA ×2 (21:35→22:02)
[2017-11-21 21:47] LABS: ALBUMIN 4.7 gm/dl (3.4-5.0); CALCIUM 9.4 mg/dl (8.5-10.1); CREATININE 1.1 mg/dl (0.60-1.20); POTASSIUM 3.8 mmol/L (3.5-5.1)
[2017-11-21 21:49] LABS: TOTAL PROTEIN 8.5 gm/dl (6.4-8.2)
[2017-11-21] MEDS ORDERED: ALBUTEROL HFA 8 GM INHALER INH STA (22:09)
[2017-11-21] MEDS ORDERED: ONDANSETRON HOME PACK 4MG OD TAB PO STA (22:09)
[2017-11-21] MEDS ORDERED: ONDA4TAB10 SL (22:12)
[2017-11-21] MEDS ORDERED: CIPR-255 PO (22:12)
[2017-11-21 22:29] VITALS: BP 149/84; PULSE 95; O2SAT 93
--- NOTE | 2017-11-21 22:52 | DIAGNOSTIC IMAGING REPORT ---
CHEST ONE VIEW PORTABLE CLINICAL HISTORY: 57 years-old Female presenting with Pt c/o hypoxia. TECHNIQUE: Portable upright AP view of the chest was obtained. COMPARISON: 06/20/2017. FINDINGS: Atherosclerosis of the aortic arch. Cardiac silhouette top normal in size. Interval development of added density of the lung bases with prominent lung markings. No focal opacity. No large effusion or pneumothorax. Osseous structures normal. Upper abdomen normal. IMPRESSION: 1. Findings suggest congestive change or aspiration. No focal opacity to suggest pneumonia. No shon pulmonary edema. Electronically signed by: Ton Cisneros M.D. 11/21/2017 10:51 PM Dictated Date/Time: 11/21/2017 10:50 PM
--- NOTE | 2017-11-23 11:57 | Pharmacy Progress Note ---
ED Pharmacist Culture FollowUp Date of Service: Nov 23, 2017. Patient was sent home with a prescription for ciprofloxacin, which should cover the E. coli growing from the patient's urine culture.
== END 2017-11-21 22:27 | disposition home or self-care (01) ==
LOC: C.EDB 20:03 → C.EDC 22:27
DX: N30.00 Acute cystitis without hematuria (principal); K29.00 Acute gastritis without bleeding; Z86.73 Personal history of transient ischemic attack (TIA), and cerebral infarction without residual deficits; I10 Essential (primary) hypertension; I25.2 Old myocardial infarction; Z88.8 Allergy status to other drugs, medicaments and biological substances

== ENCOUNTER 2019-02-04 06:31 | Observation (INO) ==
--- NOTE | 2019-02-04 07:03 | Emergency Department Note ---
ED Provider Note I assisted in the care of this patient with Dr. Villa. Please refer to her note for additional details. Past Med/Surg History Social History Preferred Language: Kosovan Communication Ability: Effective Beliefs That Will Affect Care: None Current Living Situation: Spouse Feels Safe at Home: Yes Smoking Status: Never smoker Second Hand Exposure: Yes (SPOUSE SMOKES) Hx Alcohol Use: Yes Alcohol type: hard liquor Hx Substance Use: No Results & Data Vital Signs Vital Signs - 24 hr 02/04/19 06:36 Temperature 36.9 C Temperature Source Oral Sepsis Recent Fever Within 48 Hours No Sepsis New/Unexplained Change in Mental Status No Sepsis Action Taken by Nursing No Action Required Pulse Rate 76 Respiratory Rate 16 Respiratory Effort / Characteristics Non-Labored Spontaneous Respiratory Depth Normal Blood Pressure 139/83 Blood Pressure Mean 101 Pulse Oximetry 97 Oxygen Delivery Method Room Air Discharge Plan Visit Data Chief Complaint: Rectal Bleed Stated Complaint: BLEEDING S/P COLONOSCOPY YESTERDAY IN [place] ED Provider: Grace Topete ED Midlevel Provider: Nury Mckinnon Prescriptions Prescriptions: No Action cyanocobalamin (vitamin B-12) 1,000 mcg Capsule 1,000 mcg PO QAM RF: 0 pravastatin 40 mg Tablet 40 mg PO HS RF: 0 clonazepam 0.5 mg tablet 0.5 mg PO HS RF: 0 clopidogrel 75 mg tablet 75 mg PO HS RF: 0 amlodipine 5 mg tablet 5 mg PO QAM RF: 0 calcium carbonate [Calcium 600] 600 mg calcium (1,500 mg) Tablet 600 mg PO QAM RF: 0 cholecalciferol (vitamin D3) [Vitamin D3] 2,000 unit Capsule 2,000 unit PO QAM RF: 0 bimatoprost 0.01 % drops 1 drp OPB HS RF: 0 multivitamin Tablet 1 tab PO QAM RF: 0 famotidine 20 mg tablet 20 mg PO BID Qty: 20 RF: 0 ondansetron 4 mg tablet,disintegrating 4 mg PO Q6H PRN (Reason: nausea and vomiting) Qty: 14 RF: 0 dicyclomine 20 mg tablet 20 mg PO QID PRN (Reason: abdominal pain) Qty: 30 RF: 0
[2019-02-04] MEDS ORDERED: SODIUM CHLORIDE 0.9% 250 ML IV PRN (07:10)
--- NOTE | 2019-02-04 07:13 | Emergency Department Note ---
ED Visit Note I assisted Dr. Topete with the care of this patient. Please refer to her note for additional details. . Resident Activity Tracking Resident Involvement: Resident Care Provided Care Provided: Adult ED
[2019-02-04] MEDS ORDERED: SODIUM CHLORIDE 0.9% 500 ML IV SCH (07:15)
[2019-02-04 07:21] LABS: Basophils # (auto) 0.03 K/uL (0-0.2); Basophils % (auto) 0.4 %; Eosinophils # (auto) 0.17 K/uL (0-0.5); Eosinophils % (auto) 2.3 %; Hemoglobin 13.6 g/dL (12.0-16.0); Immature Granulocytes # (auto) 0.02 K/uL (0.00-0.02); Immature Granulocytes % (auto) 0.3 %; Lymphocytes # (auto) 1.85 K/uL (1.2-3.4); Lymphocytes % (auto) 24.6 %; Mean Corpuscular Volume 86.8 fL (80-100); Mean Platelet Volume 9.7 fL (7.4-10.4); Monocytes # (auto) 0.57 K/uL (0.11-0.59); Monocytes % (auto) 7.6 %; Neutrophils # (auto) 4.88 K/uL (1.4-6.5); Neutrophils % (auto) 64.8 %; Platelet Count 255 K/uL (130-400); RDW Coefficient of Variation 12.8 % (11.5-14.5); RDW Standard Deviation 40.6 fL (36.4-46.3); Red Blood Count 4.61 M/uL (4.2-5.4); White Blood Count 7.52 K/uL (4.8-10.8)
[2019-02-04 07:29] LABS: Albumin Level 3.8 gm/dl (3.4-5.0); BUN Creatinine Ratio 10.2 (10-20); Est GFR (African American) 78.4; Est GFR (Non-African American) 67.7; Partial Thromboplastin Ratio 0.9; Partial Thromboplastin Time 24.5 Seconds (21.0-31.0); Potassium 3.8 mmol/L (3.5-5.1); Prothrombin Time 10.7 Seconds (9.0-12.0)
[2019-02-04 07:32] LABS: Albumin Globulin Ratio 1.1 (0.9-2); Bilirubin,Total 0.8 mg/dl (0.2-1); Globulin 3.5 gm/dl (2.5-4.0); Total Protein 7.3 gm/dl (6.4-8.2)
--- NOTE | 2019-02-04 09:37 | XRay Report ---
PA CHEST WITH ABDOMINAL SERIES CLINICAL HISTORY: Generalized abdominal pain. Hematochezia status post colonoscopy. FINDINGS: A PA chest radiograph is compared to study dated 12/01/2018. The cardiomediastinal silhouette is unrem arkable. The lungs and pleural spaces are clear. No pneumothorax is seen. The skeletal structures are osteopenic. The bony thorax is grossly intact. Supine and erect abdominal radiographs are correlated with abdominal CT dated 12/01/2018. Surgical cli ps are noted in the right mid abdomen. Suture material is seen in the right lower quadrant. There is a nonobstructed abdominal bowel gas pattern. No evidence of intraperitoneal free air is seen. There a re no abnormal abdominal calcifications. The lumbosacral spine and bony pelvis appear intact. IMPRESSION: 1. No active disease in the chest. 2. Nonobstructed abdominal bowel gas pattern. 3. No intraperitoneal free air is identified. Electronically signed by: Mushtaq Lacey M.D. 02/04/2019 9:36 AM
--- NOTE | 2019-02-04 10:55 | Gastrointestinal Consultation ---
Date of Consultation February 04, 2019 Assessment & Plan (1) Gastrointestinal bleeding, lower: (2) Abdominal cramping: (3) Status post colonoscopy with polypectomy: 1. NPO for now. 2. Colonoscopy now further evaluation by Dr. Hicks. 3. Additional recommendations will be made pending results of testing. Supervising Physician Co-Signing Physician Notes Agree with ALEX Manzanares as above Abd: Soft, NT, ND, +BS Patient with large polypectomy by Dr. Kaufman at [facility] yesterday. I discussed case with him. Most likely post-polypectomy bleeding from yesterday. Patient has only had clear liquids, and has not restarted her Plavix. Will proceed with colonoscopy now. History of Present Illness Reason for Consultation: LGIB Requesting Physician: Dr. Topete Attending Physician: Dr. 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 Hicks in November of this year. Due to this, she was referred for EMR at [facility] by Dr. Kaufman. The patient did undergo the procedure yesterday. After discussion with Dr. Kaufman and review of endoscopic procedure report, was found that the procedure was technically challenging and she did have an arterial bleed during the procedure which required Endoclip placement x 2 for hemostasis. She was discharged home on a clear liquid diet. Patient states that upon discharge, she did have some mild abdominal cramping and was very tired. She did only consume liquids in the middle of the night. Several hours prior to arrival, she states she began having worsening cramping and liquid and bloody stools "felt like I was still prepping". Since arrival at the ER, she has continued to pass some bright red and meagan liquid stool. No abdominal firmness or severe pain but some cramping remains. Denies any fevers or chills, nausea or vomiting, chest pain, shortness of breath or fatigue. Abdominal series was negative for any free air. Allergies Allergy/AdvReac Type Severity Reaction Status Date / Time diphenhydramine Allergy Intermediate SEIZURES Verified 02/04/19 11:17 cephalexin Allergy Mild RASH Verified 02/04/19 11:17 bacitracin Allergy Unknown BLISTERS Verified 02/04/19 11:17 neomycin Allergy Unknown BLISTERS Verified 02/04/19 11:17 polymyxin B Allergy Unknown BLISTERS Verified 02/04/19 11:17 nitrofurantoin AdvReac Vomiting Verified 02/04/19 11:17 [From Macrodantin] Home Medications Home Medications Medication Instructions Recorded Confirmed Type amlodipine 5 mg PO QAM 04/18/18 02/04/19 History bimatoprost 1 drp OPB HS 04/18/18 02/04/19 History calcium carbonate [Calcium 600] 600 mg PO QAM 04/18/18 02/04/19 History cholecalciferol (vitamin D3) 2,000 unit PO QAM 04/18/18 02/04/19 History [Vitamin D3] clonazepam 0.5 mg PO HS 04/18/18 02/04/19 History clopidogrel 75 mg PO HS 04/18/18 02/04/19 History multivitamin 1 tab PO QAM 04/18/18 02/04/19 History pravastatin 40 mg PO HS 04/18/18 02/04/19 History cyanocobalamin (vitamin B-12) 1,000 mcg PO QAM 11/13/18 02/04/19 History Patient History Medical History Hyperlipidemia Hypertension Restless leg syndrome Stroke 2000-WOKE UP WITH RIGHT SIDE PARALYZED-REMAINS WITH RIGHT LEG WEAKNESS WITH FATIGUE-ON BLOOD THINNER SINCE 2000-NO ISSUES SINCE Surgical History History of appendectomy 2014 CANCER DX'D ON PATHOLOGY-NO CHEMO/NO RADIATION History of bilateral tubal ligation History of cataract surgery R/L History of colonoscopy History of open reduction and internal fixation (ORIF) procedure LEFT WRIST History of transesophageal echocardiography (PABLO) X 3 Family History Uncle Family history of diabetes mellitus Family/Other Family history of diabetes mellitus Grandmother (Paternal) Family history of diabetes mellitus Mother Family hx of colon cancer Social History Preferred Language: Romansh Communication Ability: Effective Beliefs That Will Affect Care: None Current Living Situation: Spouse Feels Safe at Home: Yes Smoking Status: Never smoker Second Hand Exposure: Yes (SPOUSE SMOKES) Hx Alcohol Use: Yes Alcohol type: hard liquor Hx Substance Use: No Review of Systems Review of Systems: All systems reviewed & are unremarkable except as noted in HPI & below Physical Exam Constitutional: WD/WN, vitals as above Eyes: EOM intact bilaterally Neck: normal appearance Respiratory: normal respiratory effort, lungs clear to auscultation Cardiovascular: Rate/Rhythm: regular rate and regular rhythm Gastrointestinal (Abdomen): Inspection/Auscultation: normal bowel sounds Percussion/Palpation: abdomen soft; abdomen nontender Musculoskeletal: Extremities: no cyanosis Skin: no rashes, warm and dry Psychiatric: A+Ox3, euthymic affect Results & Data Vital Signs (Past 12 Hours) Vital Signs Temp Pulse Resp BP Pulse Ox 02/04/19 10:31 62 18 92 02/04/19 10:30 63 16 123/74 93 02/04/19 10:22 60 130/80 94 02/04/19 10:21 66 94 02/04/19 09:01 68 143/92 H 02/04/19 09:00 67 02/04/19 08:31 63 02/04/19 08:30 60 22 115/76 02/04/19 08:01 61 15 02/04/19 08:00 62 16 123/81 02/04/19 07:32 95 02/04/19 07:31 69 15 93 02/04/19 07:30 66 20 111/80 93 02/04/19 07:29 67 21 94 02/04/19 07:26 67 18 120/79 91 02/04/19 06:36 36.9 C 76 16 139/83 97 Laboratory Results Abnormal lab results 02/04/19 02/04/19 Range/Units 07:01 07:29 Chloride 109 H (98-107) mmol/L Glucose 102 H (70-99) mg/dl Alkaline Phosphatase 122 H (45-117) U/L Crossmatch See Detail
--- NOTE | 2019-02-04 11:02 | Anesthesiology Consultation ---
Date of Service February 04, 2019 Assessment & Plan Chart Review Chart Review: Acceptable Risk for Surgery and Patient NOT seen in Pre Admission Testing Consults Requested none History Surgery Operation Date: 02/04/19 09:30 Proposed Procedures p Colonoscopy Dr. Kurt Hicks, DO Height/Weight Height: 5 ft 6 in Weight: 91.3 kg Allergies Allergy/AdvReac Type Severity Reaction Status Date / Time diphenhydramine Allergy Intermediate SEIZURES Verified 02/04/19 07:06 cephalexin Allergy Mild RASH Verified 02/04/19 07:06 bacitracin Allergy Unknown BLISTERS Verified 02/04/19 07:06 neomycin Allergy Unknown BLISTERS Verified 02/04/19 07:06 polymyxin B Allergy Unknown BLISTERS Verified 02/04/19 07:06 nitrofurantoin AdvReac Vomiting Verified 02/04/19 07:06 [From Macrodantin] Medications Home Medications Medication Instructions Recorded Confirmed Last Taken amlodipine 5 mg PO QA 04/18/18 02/04/19 02/03/19 bimatoprost 1 drp OPB 04/18/18 02/04/19 02/03/19 calcium carbonate [Calcium 600] 600 mg PO QAM 04/18/18 02/04/19 02/03/19 cholecalciferol (vitamin D3) 2,000 unit PO QA 04/18/18 02/04/19 02/03/19 [Vitamin D3] clonazepam 0.5 mg PO 04/18/18 02/04/19 02/03/19 clopidogrel 75 mg PO 04/18/18 02/04/19 01/27/19 multivitamin 1 tab PO QA 04/18/18 02/04/19 02/03/19 pravastatin 40 mg PO 04/18/18 02/04/19 02/03/19 cyanocobalamin (vitamin B-12) 1,000 mcg PO QAM 11/13/18 02/04/19 02/03/19 Past Medical History Medical History Hyperlipidemia Hypertension Restless leg syndrome Stroke 2000-WOKE UP WITH RIGHT SIDE PARALYZED-REMAINS WITH RIGHT LEG WEAKNESS WITH FATIGUE-ON BLOOD THINNER SINCE 2000-NO ISSUES SINCE Past Family History Family History Uncle Family history of diabetes mellitus Family/Other Family history of diabetes mellitus Grandmother (Paternal) Family history of diabetes mellitus Mother Family hx of colon cancer Past Surgical History Surgical History History of appendectomy 2014 CANCER DX'D ON PATHOLOGY-NO CHEMO/NO RADIATION History of bilateral tubal ligation History of cataract surgery R/L History of colonoscopy History of open reduction and internal fixation (ORIF) procedure LEFT WRIST History of transesophageal echocardiography (PABLO) X 3 Social History Smoking Status: Never smoker Hx Alcohol Use: Yes Alcohol type: hard liquor alcohol intake frequency: a few times a month Hx Substance Use: No substance use type: does not use Physical Exam Vital Signs Last Vital Signs Temp 36.9 C 02/04/19 06:36 Pulse 62 02/04/19 10:31 Resp 18 02/04/19 10:31 BP 123/74 02/04/19 10:30 Pulse Ox 92 02/04/19 10:31 Testing Laboratory Results 02/04/19 07:01 02/04/19 07:01 PT 10.7 Seconds (9.0-12.0) 02/04/19 07:01 INR 1.0 (0.9-1.1) 02/04/19 07:01 APTT 24.5 Seconds (21.0-31.0) 02/04/19 07:01 Blood Type A Positive 02/04/19 07:29 Antibody Screen NEGATIVE 02/04/19 07:29
[2019-02-04] MEDS ORDERED: ePHEDrine sulfate 50 MG/ML AMP IV PRN (11:20)
[2019-02-04] MEDS ORDERED: ATROPINE SULFATE 0.1 MG/ML 10ML SYR IV PRN (11:20)
--- NOTE | 2019-02-04 11:38 | History & Physical Report ---
Date of Service February 04, 2019 Assessment & Plan (1) Gastrointestinal bleeding, lower: Patient presents after colonoscopy at [facility] with red blood per rectum. Patient had 2 endoclips placed during the procedure of a polyp removal. There is no free air seen on initial imaging setting of initial hemoglobin is also stable. Patient will take a colonoscopy at [facility] by Dr. Hicks. (2) Hyperlipidemia: Patient typically is managed by Dr. Waller often she is on Pravachol for previous history of stroke and secondary risk prevention consideration of a more potent statin may be undertaken as an outpatient (3) Hypertension: Patient takes amlodipine for blood pressure control and modifying her risk factors for stroke (4) Stroke: As mentioned her Plavix is currently on hold we will continue her Pravachol (5) Restless leg syndrome: Patient takes at bedtime (6) DVT prophylaxis: Due to risk of bleeding her DVT preintervention is going to be teds and SCDs History of Present Illness Primary Care Provider: Cy John Patient presented to the ER after having a colonoscopy and polyp removal at [facility] on 02/03/2018. This was after a referral from Dr. Hicks as the patient had a 50 mm polyp at the hepatic flexure which was flattened. Medication previously removed 2 polyps in November. Patient had no significant issues with the procedure. Traveled home arriving at 5 PM on 02 03 she developed crampy abdominal pain and then developed some bright red blood watery type stools. She presented to the ER where she was in stable condition but concerns from gastroenterology to have a possible repeat colonoscopy following her blood counts will be undertaken. Patient was taken to the colonoscopy suite from the emergency department. Patient is been holding her Plavix therapy for the last 8 days and is recommended to be off Plavix for a total of 3 weeks Allergies Allergy/AdvReac Type Severity Reaction Status Date / Time diphenhydramine Allergy Intermediate SEIZURES Verified 02/04/19 11:17 cephalexin Allergy Mild RASH Verified 02/04/19 11:17 bacitracin Allergy Unknown BLISTERS Verified 02/04/19 11:17 neomycin Allergy Unknown BLISTERS Verified 02/04/19 11:17 polymyxin B Allergy Unknown BLISTERS Verified 02/04/19 11:17 nitrofurantoin AdvReac Vomiting Verified 02/04/19 11:17 [From Macrodantin] Home Medications Home Medications Medication Instructions Recorded Confirmed Type amlodipine 5 mg PO QAM 04/18/18 02/04/19 History bimatoprost 1 drp OPB 04/18/18 02/04/19 History calcium carbonate [Calcium 600] 600 mg PO QAM 04/18/18 02/04/19 History cholecalciferol (vitamin D3) 2,000 unit PO QAM 04/18/18 02/04/19 History [Vitamin D3] clonazepam 0.5 mg PO HS 04/18/18 02/04/19 History clopidogrel 75 mg PO HS 04/18/18 02/04/19 History multivitamin 1 tab PO QAM 04/18/18 02/04/19 History pravastatin 40 mg PO HS 04/18/18 02/04/19 History cyanocobalamin (vitamin B-12) 1,000 mcg PO QAM 11/13/18 02/04/19 History Past Med/Surg History Medical History Hyperlipidemia Hypertension Restless leg syndrome Stroke 2000-WOKE UP WITH RIGHT SIDE PARALYZED-REMAINS WITH RIGHT LEG WEAKNESS WITH FATIGUE-ON BLOOD THINNER SINCE 2000-NO ISSUES SINCE Surgical History History of appendectomy 2014 CANCER DX'D ON PATHOLOGY-NO CHEMO/NO RADIATION History of bilateral tubal ligation History of cataract surgery R/L History of colonoscopy History of open reduction and internal fixation (ORIF) procedure LEFT WRIST History of transesophageal echocardiography (PABLO) X 3 Family History Uncle Family history of diabetes mellitus Family/Other Family history of diabetes mellitus Grandmother (Paternal) Family history of diabetes mellitus Mother Family hx of colon cancer Social History Preferred Language: Sammarinese Communication Ability: Effective Research Manager Required: No Beliefs That Will Affect Care: None Current Living Situation: Spouse Other Information That Helps Us Care for You: No Feels Safe at Home: Yes Safety Concerns: Feels Safe At This Time Smoking Status: Never smoker Do You Dip or Chew Tobacco: No Second Hand Exposure: Yes ( smokes) Tobacco Cessation Education Requested by Patient: No Hx Alcohol Use: Yes Alcohol type: hard liquor Hx Substance Use: No Review of Systems Review of Systems: ROS: well nourished well developed. No double vision blurry vision No problems with speech or swallowing No palpitations, chest pain or pressure No Wheezing or breathing issues Patient is some mild quadrant abdominal crampiness has had bright red blood per rectum and some loose stools No burning urine urine frequency or changes in color No focal joint pain or muscle pain No skin rashes or oral lesions No unusual bruising or bleeding No focused back pain or numbness or loss of strength No changes in memory or confusion Physical Exam Physical Exam: The patient appeared well nourished and normally developed. Vital signs as documented. Head exam is unremarkable. normocephalic, atraumatic Neck is without jugular venous distension, thyromegaly, or lymphademopathy Lungs are clear to auscultation and percussion. Cardiac exam reveals Rhythm is regular. First and second heart sounds normal. Abdominal exam reveals normal bowel sounds, no masses, no organomegaly, no guarding only mild pain to palpation Extremities are nonedematous and both pedal pulses are present Neurologic exam is A&Ox3, no focal deficits, strength is equal bilateral Psychologically seems neither anxious or depressed Skin is warm Dry without bruises or lesions Results & Data Vital Signs (Past 12 Hours) Vital Signs Temp Pulse Pulse Resp BP BP Pulse Ox 02/04/19 11:24 36.8 C 63 16 143/90 H 97 02/04/19 11:00 134/87 02/04/19 10:31 62 18 92 02/04/19 10:30 63 16 123/74 93 02/04/19 10:22 60 130/80 94 02/04/19 10:21 66 94 02/04/19 09:01 68 143/92 H 02/04/19 09:00 67 02/04/19 08:31 63 02/04/19 08:30 60 22 115/76 02/04/19 08:01 61 15 02/04/19 08:00 62 16 123/81 02/04/19 07:32 95 02/04/19 07:31 69 15 93 02/04/19 07:30 66 20 111/80 93 02/04/19 07:29 67 21 94 02/04/19 07:26 67 18 120/79 91 02/04/19 06:36 36.9 C 76 16 139/83 97 Diagnostic Findings Abdominal plain x-ray . No active disease in the chest. Non obstructed abdominal bowel gas pattern. No intraperitoneal free air is identified. PG Care Time/CCT Total # of Minutes Spent Total Time Spent with Patient: Total time spent is greater than 50% in coordination of care (as documented) at patient's floor/unit and/or counseling patient:
[2019-02-04] MEDS ORDERED: LIDOCAINE HCL 2% 2 ML VIAL/AMP(20MG/ML) INFIL ONE (11:41)
[2019-02-04] MEDS ORDERED: PROPOFOL IV EMULSION 10 MG/ML 20 ML VIAL IV ONE (11:41)
--- NOTE | 2019-02-04 12:25 | GI REPORT ---
Patient Name: Annmarie Perales Procedure Date: 02/04/2019 11:24 AM Date of : 1960 Admit Type: Outpatient Age: 58 Gender: Female Attending MD: Yang Hicks DO Procedure: Colonoscopy Providers: Yang Hicks DO Referring MD: Wilmar Tuttle Indications: Treatment of bleeding from polypectomy site Medicines: Monitored Anesthesia Care Complications: No immediate complications. Estimated Blood Loss: Estimated blood loss: none. Procedure: Pre-Anesthesia Assessment: - Prior to the procedure, a History and Physical was performed, and patient medications and allergies were reviewed. The patient's tolerance of previous anesthesia was also reviewed. The risks and benefits of the procedure and the sedation options and risks were discussed with the patient. All questions were answered, and informed consent was obtained. Prior Anticoagulants: The patient has taken Plavix (clopidogrel), last dose was 8 days prior to procedure. ASA Grade Assessment: III - A patient with severe systemic disease. After reviewing the risks and benefits, the patient was deemed in satisfactory condition to undergo the procedure. After I obtained informed consent, the scope was passed under direct vision. Throughout the procedure, the patient's blood pressure, pulse, and oxygen saturations were monitored continuously. The scope was introduced through the anus and advanced to the terminal ileum. The colonoscopy was performed without difficulty. The patient tolerated the procedure well. The quality of the bowel preparation was poor. The rectum was photographed. Findings: The perianal and digital rectal examinations were normal. Hematin (altered blood/[id number] material) was found in the entire colon. No active bleeding was seen at the hepatic flexure, secondary to previous polypectomy procedure. Two endoclips were noted, and polypectomy site was identfied in both forward and retroflexed view. Non-bleeding internal hemorrhoids were found during retroflexion. The hemorrhoids were small. Impression: - Preparation of the colon was poor. - Blood in the entire examined colon. - Bleeding at the hepatic flexure secondary to previous polypectomy. - Non-bleeding internal hemorrhoids. - No specimens collected. Recommendation: - Admit the patient to hospital [facility] for observation. - Clear liquid diet. - Continue present medications. Yang Hicks DO 02/04/2019 12:25:01 PM This report has been signed electronically. Note Initiated On: 02/04/2019 11:24 AM Number of Addenda: 0 I attest to the content of the Intraoperative Record and orders documented therein, exceptions below {[id number]}
--- NOTE | 2019-02-04 13:22 | Anesthesiology Progress Note ---
Date of Service February 04, 2019 Anesthesia Post Procedure Vital Signs Vital Signs: Temp Pulse Pulse Resp BP BP Pulse Ox 02/04/19 12:48 54 L 16 129/69 97 02/04/19 12:33 62 16 142/84 H 97 02/04/19 12:18 60 16 116/64 98 02/04/19 11:24 36.8 C 63 16 143/90 H 97 02/04/19 11:00 134/87 02/04/19 10:31 62 18 92 02/04/19 10:30 63 16 123/74 93 02/04/19 10:22 60 130/80 94 02/04/19 10:21 66 94 02/04/19 09:01 68 143/92 H 02/04/19 09:00 67 02/04/19 08:31 63 02/04/19 08:30 60 22 115/76 02/04/19 08:01 61 15 02/04/19 08:00 62 16 123/81 02/04/19 07:32 95 02/04/19 07:31 69 15 93 02/04/19 07:30 66 20 111/80 93 02/04/19 07:29 67 21 94 02/04/19 07:26 67 18 120/79 91 02/04/19 06:36 36.9 C 76 16 139/83 97 Transfer of Care Handoff Completed per policy Notes Mental Status: alert / awake / arousable Patient Amnestic to Procedure: Yes Nausea / Vomiting: adequately controlled Pain: adequately controlled Airway Patency, RR, SpO2: stable & adequate BP & HR: stable & adequate Hydration State: stable & adequate Anesthetic Complications: no major complications apparent and Pt Satisfied with anesthetic care
--- NOTE | 2019-02-04 14:31 | Emergency Department Note ---
Entered by Nina Jimenez acting as a scribe for History of Present Illness General Chief complaint: Rectal Bleed Stated complaint: BLEEDING S/P COLONOSCOPY YESTERDAY IN [place] Time Seen by Provider: 02/04/19 06:34 Source: patient Mode of arrival: ambulatory Limitations: no limitations History of Present Illness Provider complaint: rectal bleeding Onset (ago): hour(s) (this am) Location: abdomen Pain Consistency: + other (episode) Quality: + other (bright red blood) Associated symptoms: + denies other symptoms (urianry, lightheadedness) and + other (abd pain); no nausea/vomiting The patient is a 58 year old female who presents to the ER with complaints of an episode of rectal bleeding that occurred this morning. The patient notes that she had a colonoscopy performed yesterday at [facility]. She reports that during this, she had a large polyp removed and clips placed. She states that she was told to present to the ER if she bled more than a few drops. She explains that this morning around 0600 she had a bowel movement that was all bright red blood. She notes that she has some abdominal discomfort but denies any nausea, vomiting, lightheadedness, or urinary symptoms. Home Medications Home Medications Medication Instructions Recorded Confirmed Type amlodipine 5 mg PO QA 04/18/18 02/04/19 History bimatoprost 1 drp OPB 04/18/18 02/04/19 History calcium carbonate [Calcium 600] 600 mg PO QA 04/18/18 02/04/19 History cholecalciferol (vitamin D3) 2,000 unit PO QA 04/18/18 02/04/19 History [Vitamin D3] clonazepam 0.5 mg PO 04/18/18 02/04/19 History clopidogrel 75 mg PO 04/18/18 02/04/19 History multivitamin 1 tab PO QA 04/18/18 02/04/19 History pravastatin 40 mg PO 04/18/18 02/04/19 History cyanocobalamin (vitamin B-12) 1,000 mcg PO QAM 11/13/18 02/04/19 History Allergies Allergy/AdvReac Type Severity Reaction Status Date / Time diphenhydramine Allergy Intermediate SEIZURES Verified 02/04/19 11:17 cephalexin Allergy Mild RASH Verified 02/04/19 11:17 bacitracin Allergy Unknown BLISTERS Verified 02/04/19 11:17 neomycin Allergy Unknown BLISTERS Verified 02/04/19 11:17 polymyxin B Allergy Unknown BLISTERS Verified 02/04/19 11:17 nitrofurantoin AdvReac Vomiting Verified 02/04/19 11:17 [From Macrodantin] Past Med/Surg History Medical History Hyperlipidemia Hypertension Restless leg syndrome Stroke 2000-WOKE UP WITH RIGHT SIDE PARALYZED-REMAINS WITH RIGHT LEG WEAKNESS WITH FATIGUE-ON BLOOD THINNER SINCE 2000-NO ISSUES SINCE Surgical History History of appendectomy 2014 CANCER DX'D ON PATHOLOGY-NO CHEMO/NO RADIATION History of bilateral tubal ligation History of cataract surgery R/L History of colonoscopy History of open reduction and internal fixation (ORIF) procedure LEFT WRIST History of transesophageal echocardiography (PABLO) X 3 Family History Uncle Family history of diabetes mellitus Family/Other Family history of diabetes mellitus Grandmother (Paternal) Family history of diabetes mellitus Mother Family hx of colon cancer Social History Preferred Language: Belgian Communication Ability: Effective 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 and A total of 10 systems reviewed and were otherwise negative Physical Exam Vital Signs Vital Signs - 24 hr 02/04/19 06:36 02/04/19 07:26 02/04/19 07:29 Temperature 36.9 C Temperature Source Oral Sepsis Recent Fever Within 48 Hours No Sepsis New/Unexplained Change in Mental Status No Sepsis Action Taken by Nursing No Action Required Pulse Rate 76 67 67 Pulse Rate [Right Radial] Pulse Rate from SpO2 Sensor 66 67 Pulse Rhythm [Right Radial] Pulse Strength [Right Radial] Respiratory Rate 16 18 21 Respiratory Effort / Characteristics Non-Labored Spontaneous Respiratory Depth Normal Respiratory Pattern Blood Pressure 139/83 120/79 Blood Pressure [Left Arm] Blood Pressure Mean 101 92 Blood Pressure Mean [Left Arm] Blood Pressure Position [Left Arm] Pulse Oximetry 97 91 94 Oxygen Delivery Method Room Air 02/04/19 07:30 02/04/19 07:31 02/04/19 07:32 Temperature Temperature Source Sepsis Recent Fever Within 48 Hours Sepsis New/Unexplained Change in Mental Status Sepsis Action Taken by Nursing Pulse Rate 66 69 Pulse Rate [Right Radial] Pulse Rate from SpO2 Sensor 65 67 Pulse Rhythm [Right Radial] Pulse Strength [Right Radial] Respiratory Rate 20 15 Respiratory Effort / Characteristics Respiratory Depth Respiratory Pattern Blood Pressure 111/80 Blood Pressure [Left Arm] Blood Pressure Mean 90 Blood Pressure Mean [Left Arm] Blood Pressure Position [Left Arm] Pulse Oximetry 93 93 95 Oxygen Delivery Method Room Air 02/04/19 08:00 02/04/19 08:01 02/04/19 08:30 Temperature Temperature Source Sepsis Recent Fever Within 48 Hours Sepsis New/Unexplained Change in Mental Status Sepsis Action Taken by Nursing Pulse Rate 62 61 60 Pulse Rate [Right Radial] Pulse Rate from SpO2 Sensor Pulse Rhythm [Right Radial] Pulse Strength [Right Radial] Respiratory Rate 16 15 22 Respiratory Effort / Characteristics Respiratory Depth Respiratory Pattern Blood Pressure 123/81 115/76 Blood Pressure [Left Arm] Blood Pressure Mean 95 89 Blood Pressure Mean [Left Arm] Blood Pressure Position [Left Arm] Pulse Oximetry Oxygen Delivery Method 02/04/19 08:31 02/04/19 09:00 02/04/19 09:01 Temperature Temperature Source Sepsis Recent Fever Within 48 Hours Sepsis New/Unexplained Change in Mental Status Sepsis Action Taken by Nursing Pulse Rate 63 67 68 Pulse Rate [Right Radial] Pulse Rate from SpO2 Sensor Pulse Rhythm [Right Radial] Pulse Strength [Right Radial] Respiratory Rate Respiratory Effort / Characteristics Respiratory Depth Respiratory Pattern Blood Pressure 143/92 H Blood Pressure [Left Arm] Blood Pressure Mean 109 Blood Pressure Mean [Left Arm] Blood Pressure Position [Left Arm] Pulse Oximetry Oxygen Delivery Method 02/04/19 10:21 02/04/19 10:22 02/04/19 10:30 Temperature Temperature Source Sepsis Recent Fever Within 48 Hours Sepsis New/Unexplained Change in Mental Status Sepsis Action Taken by Nursing Pulse Rate 66 60 63 Pulse Rate [Right Radial] Pulse Rate from SpO2 Sensor 67 60 64 Pulse Rhythm [Right Radial] Pulse Strength [Right Radial] Respiratory Rate 16 Respiratory Effort / Characteristics Respiratory Depth Respiratory Pattern Blood Pressure 130/80 123/74 Blood Pressure [Left Arm] Blood Pressure Mean 96 90 Blood Pressure Mean [Left Arm] Blood Pressure Position [Left Arm] Pulse Oximetry 94 94 93 Oxygen Delivery Method 02/04/19 10:31 02/04/19 11:00 02/04/19 11:24 Temperature 36.8 C Temperature Source Oral Sepsis Recent Fever Within 48 Hours Sepsis New/Unexplained Change in Mental Status Sepsis Action Taken by Nursing Pulse Rate 62 Pulse Rate [Right Radial] 63 Pulse Rate from SpO2 Sensor 63 Pulse Rhythm [Right Radial] Regular Pulse Strength [Right Radial] Normal Respiratory Rate 18 16 Respiratory Effort / Characteristics Non-Labored Respiratory Depth Normal Respiratory Pattern Regular Blood Pressure 134/87 Blood Pressure [Left Arm] 143/90 H Blood Pressure Mean 102 Blood Pressure Mean [Left Arm] 107 Blood Pressure Position [Left Arm] Sitting Pulse Oximetry 92 97 Oxygen Delivery Method Room Air 02/04/19 12:18 Temperature Temperature Source Sepsis Recent Fever Within 48 Hours Sepsis New/Unexplained Change in Mental Status Sepsis Action Taken by Nursing Pulse Rate Pulse Rate [Right Radial] 60 Pulse Rate from SpO2 Sensor Pulse Rhythm [Right Radial] Regular Pulse Strength [Right Radial] Normal Respiratory Rate 16 Respiratory Effort / Characteristics Non-Labored Respiratory Depth Normal Respiratory Pattern Regular Blood Pressure Blood Pressure [Left Arm] 116/64 Blood Pressure Mean Blood Pressure Mean [Left Arm] 81 Blood Pressure Position [Left Arm] Semi-fowlers Pulse Oximetry 98 Oxygen Delivery Method Room Air Vital signs reviewed. General: Well-appearing, in no significant distress. HEENT: No scleral icterus, PERRLA, neck supple. Atraumatic. Dry mucous membranes. Cardiovascular: Regular rate and rhythm, no extra sounds. Pulmonary: Clear to auscultation bilaterally, normal work of breathing. Abdomen: Soft, nontender, nondistended, positive bowel sounds. Musculoskeletal: Atraumatic, no peripheral edema. Neurologic: Patient awake alert and oriented x 3 Skin: Warm, dry, no rash Course 0645: Dr. Mckinnon - PGY 3 evaluated the patient. 0737: I did perform an independent evaluation and examination of this patient as described. I also saw this patient in conjunction with the resident, Dr. Mckinnon, and guided management for the patient. 0938: I discussed the patients case with Dr. Kurt WEIR. He will speak with Dr. Mandeep WEIR about the patients recent procedure and call back. 1021: I reviewed the patients case with Dr. Kurt WEIR. He recommends admission of the patient and will come evaluate the patient. 1028: Dr. Mckinnon discussed the patients case with Dionna Huddleston PA-C [facility] Hospitalist who will speak to her attending, Dr. Tuttle, about accepting the patient into their care. 1045: I spoke with Dr. Kurt JONES. He will be scoping the patient soon. Administered Medications Discontinued Medications Sodium Chloride (Nss) 500 mls @ 999 mls/hr IV .Q31M SARAH Stop: 02/04/19 07:45 Last Infusion: 02/04/19 08:27 Dose: 0 mls/hr Documented by: [id number] Admin: 02/04/19 07:35 Dose: 999 mls/hr Documented by: [id number] Medical Decision Making Differential Diagnosis Differential diagnosis includes: diverticulosis, AVM, coagulopathy, colitis, inflammatory bowel disease, post-operative complication, malignancy, Iveth- Waterman tear, esophagitis, peptic ulcer disease, variceal bleed, gastritis, fissure, hemorrhoids, as well as others were entertained. Medical Records Attestation: I reviewed the patient's medical records. Home Medications Current Medication List: was personally reviewed by me Laboratory Data Attestation: I reviewed the patient's lab results. Result diagrams: 02/04/19 07:01 02/04/19 07:01 Lab Results 02/04/19 02/04/19 02/04/19 Range/Units 07:01 07:01 07:01 WBC 7.52 (4.8-10.8) K/uL RBC 4.61 (4.2-5.4) M/uL Hgb 13.6 (12.0-16.0) g/dL Hct 40.0 (37-47) % MCV 86.8 (80-100) fL MCH 29.5 (25-34) pg MCHC 34.0 (32-36) g/dL RDW Std Deviation 40.6 (36.4-46.3) fL RDW Coeff of Juan 12.8 (11.5-14.5) % Plt Count 255 (130-400) K/uL MPV 9.7 (7.4-10.4) fL Immature Gran % (Auto) 0.3 % Neut % (Auto) 64.8 % Lymph % (Auto) 24.6 % [place] % (Auto) 7.6 % Eos % (Auto) 2.3 % Baso % (Auto) 0.4 % Immature Gran # (Auto) 0.02 (0.00-0.02) K/uL Neut # (Auto) 4.88 (1.4-6.5) K/uL Lymph # (Auto) 1.85 (1.2-3.4) K/uL [place] # (Auto) 0.57 (0.11-0.59) K/uL Eos # (Auto) 0.17 (0-0.5) K/uL Baso # (Auto) 0.03 (0-0.2) K/uL PT 10.7 (9.0-12.0) Seconds INR 1.0 (0.9-1.1) APTT 24.5 (21.0-31.0) Seconds PTT Ratio 0.9 Sodium 142 (136-145) mmol/L Potassium 3.8 (3.5-5.1) mmol/L Chloride 109 H (98-107) mmol/L Carbon Dioxide 25 (21-32) mmol/L Anion Gap 8.0 (3-11) BUN 9 (7-18) mg/dl Creatinine 0.92 (0.6-1.2) mg/dl Est Cr Clr Drug Dosing 74.0 ml/min Est GFR ( Amer) 78.4 Est GFR (Non-Af Amer) 67.7 BUN/Creatinine Ratio 10.2 (10-20) Glucose 102 H (70-99) mg/dl Calcium 9.0 (8.5-10.1) mg/dl Total Bilirubin 0.8 (0.2-1) mg/dl AST 20 (15-37) U/L ALT 31 (12-78) U/L Alkaline Phosphatase 122 H (45-117) U/L Total Protein 7.3 (6.4-8.2) gm/dl Albumin 3.8 (3.4-5.0) gm/dl Globulin 3.5 (2.5-4.0) gm/dl Albumin/Globulin Ratio 1.1 (0.9-2) Blood Type Antibody Screen Crossmatch 02/04/19 Range/Units 07:29 WBC (4.8-10.8) K/uL RBC (4.2-5.4) M/uL Hgb (12.0-16.0) g/dL Hct (37-47) % MCV (80-100) fL MCH (25-34) pg MCHC (32-36) g/dL RDW Std Deviation (36.4-46.3) fL RDW Coeff of Juan (11.5-14.5) % Plt Count (130-400) K/uL MPV (7.4-10.4) fL Immature Gran % (Auto) % Neut % (Auto) % Lymph % (Auto) % [place] % (Auto) % Eos % (Auto) % Baso % (Auto) % Immature Gran # (Auto) (0.00-0.02) K/uL Neut # (Auto) (1.4-6.5) K/uL Lymph # (Auto) (1.2-3.4) K/uL [place] # (Auto) (0.11-0.59) K/uL Eos # (Auto) (0-0.5) K/uL Baso # (Auto) (0-0.2) K/uL PT (9.0-12.0) Seconds INR (0.9-1.1) APTT (21.0-31.0) Seconds PTT Ratio Sodium (136-145) mmol/L Potassium (3.5-5.1) mmol/L Chloride (98-107) mmol/L Carbon Dioxide (21-32) mmol/L Anion Gap (3-11) BUN (7-18) mg/dl Creatinine (0.6-1.2) mg/dl Est Cr Clr Drug Dosing ml/min Est GFR ( Amer) Est GFR (Non-Af Amer) BUN/Creatinine Ratio (10-20) Glucose (70-99) mg/dl Calcium (8.5-10.1) mg/dl Total Bilirubin (0.2-1) mg/dl AST (15-37) U/L ALT (12-78) U/L Alkaline Phosphatase (45-117) U/L Total Protein (6.4-8.2) gm/dl Albumin (3.4-5.0) gm/dl Globulin (2.5-4.0) gm/dl Albumin/Globulin Ratio (0.9-2) Blood Type A Positive Antibody Screen NEGATIVE Crossmatch See Detail Imaging Data Radiologist's Impression: Radiology results as stated below per my review and e radiologist's interpretation: PA CHEST WITH ABDOMINAL SERIES CLINICAL HISTORY: Generalized abdominal pain. Hematochezia status post colonoscopy. FINDINGS: A PA chest radiograph is compared to study dated 12/01/2018. The cardiomediastinal silhouette is unremarkable. The lungs and pleural spaces are clear. No pneumothorax is seen. The skeletal structures are osteopenic. The bony thorax is grossly intact. Supine and erect abdominal radiographs are correlated with abdominal CT dated 12/01/2018. Surgical clips are noted in the right mid abdomen. Suture material is seen in the right lower quadrant. There is a nonobstructed abdominal bowel gas pattern. No evidence of intraperitoneal free air is seen. There are no abnormal abdominal calcifications. The lumbosacral spine and bony pelvis appear intact. IMPRESSION: 1. No active disease in the chest. 2. Nonobstructed abdominal bowel gas pattern. 3. No intraperitoneal free air is identified. Electronically signed by: Mushtaq Lacey M.D. 02/04/2019 9:36 AM ECG Data Attestation: I personally reviewed and interpreted this ECG as follows: Indication: other (GI bleed) Rate (beats per minute): 67 Rhythm: normal sinus Findings: no acute ischemic change and no ectopy Blood Pressure Blood Pressure Findings: Normal blood pressure Blood Pressure Disposition: did not require urgent referral MDM Narrative This patient was evaluated and appeared to be in no significant distress. IV a ccess was obtained and laboratory work was drawn. Patient was placed on a compliance monitor and found to be in a normal sinus rhythm. Laboratory work is fairly reassuring with a stable hemoglobin of 13.6. IV fluids were initiated. Patient was sent for abdominal x-ray series which reveals no evidence of free air. After several hours in the emergency department, the patient did have one BM with minimal amounts of dark red clotted blood. Case was discussed with Dr. Yang Hicks of gastroenterology who contacted Dr. Kaufman at [facility]. Dr. Kaufman had performed the procedure yesterday. It was determined that the patient would not necessitate transfer at this time. Dr. Hicks decided to evaluate the site of bleeding with a colonoscopy. Dr. Tuttle of the hospitalist service was consulted for further management. She is aware of the plan and agrees. Impression & Plan GI bleed, S/P colonoscopic polypectomy Discharge Plan Visit Data *Final* Discharge Date/Time: 02/04/19 11:10 Chief Complaint: Rectal Bleed Stated Complaint: BLEEDING S/P COLONOSCOPY YESTERDAY IN [place] ED Provider: Grace Topete ED Midlevel Provider: Nury Mckinnon Discharge Problem: GI bleed, S/P colonoscopic polypectomy Patient Disposition: Being Evaluated by Surgeon Discharge Instructions Interventions: ED Discharge Assessment Last Done: 02/04/19 11:02 Discharge Problem: GI bleed Qualifiers: GI bleed type/associated pathology: unspecified gastrointestinal hemorrhage type Qualified Code(s): K92.2 - Gastrointestinal hemorrhage, unspecified The scribe's documentation has been prepared under my direction and personally reviewed by me in its entirety. I confirm that the note above accurately reflects all work, treatment, procedures, and medical decision making performed by me.
[2019-02-04] MEDS ORDERED: ONDANSETRON INJ 2 MG/ML 2 ML VIAL IV PRN (14:46)
[2019-02-04] MEDS ORDERED: ACETAMINOPHEN 325 MG TAB PO PRN (14:46)
[2019-02-04] MEDS ORDERED: MoRPHine SULFATE 2 MG/ML CARP IV PRN (14:46)
[2019-02-04] MEDS: SODIUM CHLORIDE 0.9% 1000ML 1,000 ML IV SCH ×2 (15:33→23:57)
[2019-02-04] MEDS ORDERED: clonazePAM 0.5 MG TAB PO SCH (21:00)
[2019-02-04] MEDS ORDERED: PRAVASTATIN SOD 40 MG TAB PO SCH (21:00)
[2019-02-04] MEDS ORDERED: BIMATOPROST 0.01% OP SOLN 2.5 ML BTL OPB SCH (21:00)
[2019-02-05 06:28] LABS: Hematocrit (blood only) 35.1 % (37-47); Hemoglobin 11.5 g/dL (12.0-16.0); Mean Corpuscular Hgb Conc 32.8 g/dL (32-36); Mean Corpuscular Volume 88.2 fL (80-100); Mean Platelet Volume 9.9 fL (7.4-10.4); Platelet Count 240 K/uL (130-400); RDW Standard Deviation 41.6 fL (36.4-46.3); Red Blood Count 3.98 M/uL (4.2-5.4); White Blood Count 6.64 K/uL (4.8-10.8)
[2019-02-05 06:58] LABS: BUN Creatinine Ratio 9.2 (10-20); Calcium 8.8 mg/dl (8.5-10.1); Creatinine Clr Calc Pharmacy 77.6 ml/min; Est GFR (African American) 82.8; Est GFR (Non-African American) 71.4; Potassium 3.8 mmol/L (3.5-5.1)
[2019-02-05] MEDS ORDERED: MULTIVITAMIN TAB PO SCH (09:00)
[2019-02-05] MEDS ORDERED: CHOLECALCIFEROL 1,000 UNITS TAB PO SCH (09:00)
[2019-02-05] MEDS ORDERED: CYANOCOBALAMIN 500 MCG TABLET (VITAMIN B-12) PO SCH (09:00)
[2019-02-05] MEDS ORDERED: AMLODIPINE BESYLATE 5 MG TAB PO SCH (09:00)
[2019-02-05] MEDS ORDERED: CALCIUM CARBONATE 1250MG TAB PO SCH (09:00)
--- NOTE | 2019-02-05 09:32 | Gastroenterology Progress Note ---
Date of Service February 05, 2019 Assessment & Plan (1) Gastrointestinal bleeding, lower: (2) Abdominal cramping: (3) Status post colonoscopy with polypectomy: 1. Advanced diet as tolerated. 2. Okay for discharge from a GI standpoint. Supervising Physician Co-Signing Physician Notes Agree with ALEX Manzanares as above Abd: Soft, NT, ND, +BS No signs of rebleeding Hold Plavix for 2 weeks Subjective Patient reports she is feeling well today. Tolerating clear liquid diet. H&H this morning was noted to be 11.5/35.1. Denies any further rectal bleeding. Review of Systems Review of Systems: All systems reviewed & are unremarkable except as noted in HPI & below Physical Exam Respiratory: normal respiratory effort, lungs clear to auscultation Cardiovascular: Rate/Rhythm: regular rate and regular rhythm Gastrointestinal (Abdomen): normal bowel sounds, soft, nontender, no hepatosplenomegaly Results & Data Vital Signs (Past 12 Hours) Vital Signs Temp Pulse Pulse Resp BP BP Pulse Ox 02/05/19 07:23 63 02/05/19 06:59 37.1 C 63 18 119/65 93 02/05/19 03:30 36.8 C 66 18 120/72 96 02/05/19 00:39 67 02/05/19 00:00 37.3 C 65 18 104/63 93 Laboratory Results Abnormal lab results 02/05/19 02/05/19 02/05/19 Range/Units 00:00 05:54 05:54 RBC 3.98 L (4.2-5.4) M/uL Hgb 10.6 L 11.5 L (12.0-16.0) g/dL Hct 35.1 L (37-47) % Chloride 110 H (98-107) mmol/L BUN/Creatinine Ratio 9.2 L (10-20)
--- NOTE | 2019-02-05 16:24 | Discharge Summary ---
Date of Service February 05, 2019 Admission HPI Per Admitting Provider Patient presented to the ER after having a colonoscopy and polyp removal at [facility] on 02/03/2018. This was after a referral from Dr. Hicks as the patient had a 50 mm polyp at the hepatic flexure which was flattened. Medication previously removed 2 polyps in November. Patient had no significant issues with the procedure. Traveled home arriving at 5 PM on 02 03 she developed crampy abdominal pain and then developed some bright red blood watery type stools. She presented to the ER where she was in stable condition but concerns from gastroenterology to have a possible repeat colonoscopy following her blood counts will be undertaken. Patient was taken to the colonoscopy suite from the emergency department. Patient is been holding her Plavix therapy for the last 8 days and is recommended to be off Plavix for a total of 3 weeks Admission Exam Per Admitting Provider The patient appeared well nourished and normally developed. Vital signs as documented. Head exam is unremarkable. normocephalic, atraumatic Neck is without jugular venous distension, thyromegaly, or lymphademopathy Lungs are clear to auscultation and percussion. Cardiac exam reveals Rhythm is regular. First and second heart sounds normal. Abdominal exam reveals normal bowel sounds, no masses, no organomegaly, no guarding only mild pain to palpation Extremities are nonedematous and both pedal pulses are present Neurologic exam is A&Ox3, no focal deficits, strength is equal bilateral Psychologically seems neither anxious or depressed Skin is warm Dry without bruises or lesions Principal Diagnosis GI bleed Discharge Exam The patient appeared well nourished and normally developed. Vital signs as documented. Head exam is unremarkable. normocephalic, atraumatic Neck is without jugular venous distension, thyromegaly, or lymphademopathy Lungs are clear to auscultation and percussion. Cardiac exam reveals Rhythm is regular. First and second heart sounds normal. Abdominal exam reveals normal bowel sounds, no masses, no organomegaly, no guarding only mild pain to palpation Extremities are nonedematous and both pedal pulses are present Neurologic exam is A&Ox3, no focal deficits, strength is equal bilateral Psychologically seems neither anxious or depressed Skin is warm Dry without bruises or lesions Discharge Data Allergies Allergy/AdvReac Type Severity Reaction Status Date / Time diphenhydramine Allergy Intermediate SEIZURES Verified 02/04/19 11:17 cephalexin Allergy Mild RASH Verified 02/04/19 11:17 bacitracin Allergy Unknown BLISTERS Verified 02/04/19 11:17 neomycin Allergy Unknown BLISTERS Verified 02/04/19 11:17 polymyxin B Allergy Unknown BLISTERS Verified 02/04/19 11:17 nitrofurantoin AdvReac Vomiting Verified 02/04/19 11:17 [From Macrodantin] Consultations 02/04/19 10:25 Consult Gastroenterology Stat Procedures Performed Operation Date: 02/04/19 09:30 Actual Procedures p Colonoscopy - Yang Villalpando Case, DO Hospital Course (1) GI bleed: Patient presented after noticing watery, bloody diarrhea following colonoscopy to remove 90 mm polyp at hepatic flexure GI bleed - post colonscopy and polypectomy Patient was taken from ED straight to colonoscopy Colonoscopy showed no evidence of active GI bleeding but a lot of blood in colon Patient was monitored overnight with stable hemoglobin Discharged home to follow up with PCP continuing to hold Plavix Prior CVA Continuing pravachol Holding plavix On pravastatin currently may want to try more intensive statin therapy with atorva- or simvastatin No other changes to chronic regime patient discharged with regular diet. (2) S/P colonoscopic polypectomy: (3) DVT prophylaxis: Total Time Total Time Spent Total Time Spent (In Minutes): 45 Total Time Includes: Examination of the Patient, Discharge Planning, Medication Reconciliation and Communication With Other Providers Discharge Plan Discharge Items Patient Disposition: Home - Self-Care Reason For Visit: GI BLEEDING Discharge Diagnosis: GI bleeding Discharge Goals: Improve disease control and Prevent disease Activity: Resume your previous activity Non-emergency contact: Primary Care Provider and Director Of Technology Call non-emergency contact if: you have any medication questions, your symptoms worsen and your temperature is above 100.5 Follow-up/Referrals: Cy John [Primary Care Provider] - Diet: Regular Addtl Provider Instructions: Ms. Perales, it has been our pleasure to evaluate you for your GI bleeding. We admitted you to monitor for any further bleeding after your colonoscopy procedur e to remove a large polyp. Since you had further bleeding after your procedure we performed another colonoscopy to evaluate and potentially correct any actively bleeding areas. Fortunately we did not see any evidence of current bleeding and your hemoglobin (Blood count) has remained stable. We feel it is safe to discharge you home with PCP follow up at this time. Prescriptions: Continued cyanocobalamin (vitamin B-12) 1,000 mcg Capsule 1,000 mcg PO QAM RF: 0 pravastatin 40 mg Tablet 40 mg PO HS RF: 0 clonazepam 0.5 mg tablet 0.5 mg PO HS RF: 0 amlodipine 5 mg tablet 5 mg PO QAM RF: 0 calcium carbonate [Calcium 600] 600 mg calcium (1,500 mg) Tablet 600 mg PO QAM RF: 0 cholecalciferol (vitamin D3) [Vitamin D3] 2,000 unit Capsule 2,000 unit PO QAM RF: 0 bimatoprost 0.01 % drops 1 drp OPB HS RF: 0 multivitamin Tablet 1 tab PO QAM RF: 0 Discontinued clopidogrel 75 mg tablet 75 mg PO HS RF: 0 Stand-Alone Forms: My [facility], Work/School Release (Inpt) Discharge Orders: Discharge Order (Routine); Ordered 02/05/19 Ordered By: Fredy Aguirre Admission Data Admit Date/Time: 02/04/19 12:28 Attending Provider: Indy Guzman Admit Provider: Wilmar Tuttle Primary Care Provider: Cy John Other Providers: Kristy Busch ; Wilmar Tuttle Service: Telemetry Other Interventions: Discharge Summary Assessment (RN) Last Done: 02/05/19 11:23 DC Date/Time DO NOT enter until pt leaves facility: 02/05/19 12:00 Supervising Physician Co-Signing Physician Notes Resident Physician Supervision Note: I independently interviewed and examined the patient and verified the peters hi story and physical, reviewed labs and image studies, discussed the case with the resident Dr. Aguirre and agree with the findings and care plan. Resident Activity Tracking Resident Involvement: Resident Care Provided Care Provided: Adult Hospital Medicine
== END 2019-02-05 12:00 | disposition home or self-care (01) ==
LOC: ED 06:31 → 2N 11:10 → ENDO 11:10 → SUATTDRO 12:28